=== PATIENT | male | born 1970 | race Caucasian/White ===

== ENCOUNTER 2021-05-12 23:03 | Inpatient (IN) | payer BC, SELFPAY ==
--- NOTE | ~2021-05-12 | US_ITS ---
EXAMINATION: US VENOUS ULTRASOUND WITH DOPPLER LOWER EXTREMITY, BILATERAL CLINICAL INFORMATION: Cellulitis rule out DVT/abscess. COMPARISON: None TECHNIQUE: Ultrasound of the deep veins is performed from the hip to the calf with compression sonography and color and pulse Doppler assessment. Spectral analysis with color-flow imaging is performed. FINDINGS: RIGHT: There is normal venous compression and respiratory variation and augmented flow. The visualized common femoral vein, superficial femoral vein, profunda femoral vein, popliteal vein, and the trifurcation region shows no evidence of deep venous thrombosis. No right popliteal cyst. An elongated, thin-walled proximal right thigh/inguinal lymph node measures 4.4 cm in long axis. Mild to moderate subcutaneous edema seen in the right calf. LEFT: There is normal venous compression and respiratory variation and augmented flow. The visualized common femoral vein, superficial femoral vein, profunda femoral vein, popliteal vein, and the trifurcation region shows no evidence of deep venous thrombosis. No left popliteal cyst. Mild subcutaneous edema in the left calf. US/US venous duplex LE BI IMPRESSION: 1. No evidence for deep venous thrombosis in the visualized veins of the bilateral lower extremities. 2. Mild to moderate subcutaneous edema in the calves bilaterally, right greater than left. No focal fluid collection. An elongated right proximal thigh/inguinal lymph node is enlarged, but demonstrates overall benign features. This could be baseline for the patient and/or could represent chronic reactive node.
[2021-05-12 23:25] VITALS: PULSE 122; O2SAT 99; BMI 43.7
[2021-05-12 23:43] VITALS: BP 117/54; PULSE 121; RESP 22; TEMP 36.9; O2SAT 96
[2021-05-13 00:28] LABS: MANUAL DIFF FLAG NO
[2021-05-13 00:30] LABS: Basophils Percent Auto 0.2 % (0-2); Hematocrit 40.7 % (42.0-52.0); Imm Gran Abs Auto 0.16 X10*3/uL (0.00-0.03); Imm Gran Pct Auto 0.9 % (0.0-0.4); Lymphocytes Absolute Auto 0.5 X10*3/uL (1.2-4.9); Lymphocytes Percent Auto 2.4 % (20-40); Mean Corpuscular HGB Conc 34.4 g/dl (31.0-36.0); Mean Corpuscular Hemoglobin 29.9 pg (27.0-33.0); Monocytes Absolute Auto 0.6 X10*3/uL (0.1-1.2); Monocytes Percent Auto 3.3 % (2-11); Neutrophils Absolute Auto 17.3 x10*3/uL (2.0-8.3); Neutrophils Percent Auto 93.2 % (45-73); Platelet Count 163 X10*3/uL (160-400); Red Blood Count 4.68 X10*6/uL (4.60-5.80); Red Cell Distribution Width 13.8 % (11.0-16.0); SCAN SMEAR FLAG 1; White Blood Count 18.5 X10*3/uL (4.8-10.8)
[2021-05-13 00:40] LABS: Lactic Acid 1.8 mmol/L (0.5-2.0)
[2021-05-13 00:45] LABS: Alanine Aminotransferase 28 U/L (0-40); Albumin Level 4.2 g/dL (3.5-5.0); Alkaline Phosphatase 62 U/L (39-117); Anion Gap 14 (12-20); Aspartate Amino Transferase 18 U/L (5-37); Bilirubin Total 2.5 mg/dL (0.0-1.0); Blood Urea Nitrogen 15 mg/dL (9-16); Calcium 9.3 mg/dL (8.4-10.2); Carbon Dioxide 25 mmol/L (22-29); Chloride 103 mmol/L (96-108); Estimated Glomerular Filt Rate > 60; Glucose Random 129 mg/dL (60-115); Potassium 3.9 mmol/L (3.3-5.1); Sodium 138 mmol/L (135-145); Total Protein 6.3 g/dL (6.5-8.0)
--- NOTE | 2021-05-13 00:52 | ED_ITS ---
HPI - Extremity Problem General Chief complaint: Extremity Injury, Lower Stated complaint: Rt Leg Swelling Time Seen by Provider: 05/12/21 23:48 Source: patient Mode of arrival: EMS History of Present Illness HPI Narrative: 50-year-old male with history of congenital lymphedema and history cellulitis as well as sepsis presents via ambulance with noticing that his leg was acutely painful and red today. Patient otherwise denies fever, chills and states he is having some nausea but also endorses that this can sometimes be related to the medication he takes. He has previously been seen at [facility] and records will be requested. Related Data Allergies Allergy/AdvReac Type Severity Reaction Status Date / Time No Known Allergies Allergy Verified 05/13/21 00:32 Review of Systems Review of Systems: Pertinent positives and negatives as stated in HPI 10 point review of systems is otherwise negative. [facility] Past Medical History Source: nursing notes reviewed Social History Social History Advance Directives: No Physical Exam Vital Signs: Vital Signs: Last Vital Signs Temp 98.4 F 05/12/21 23:43 Pulse 121 H 05/12/21 23:43 Resp 22 H 05/12/21 23:43 BP 117/54 L 05/12/21 23:43 Pulse Ox 96 05/12/21 23:43 BMI result Body Mass Index 43.7 VITAL SIGNS: Reviewed. GENERAL: Elevated BMI, Well developed, well nourished, in moderate distress. HEAD: Normocephalic/atraumatic EYES: PERRLA, EOMI EARS: Ext canals without abnormality OROPHARYNX: no oral lesions noted, posterior pharynx clear LUNGS: Normal breath sounds. No adventitious sounds or accessory muscle use. SpO2<96> CARDIOVASCULAR: Regular rate and rhythm without noted murmurs, no JVD or but bilateral lower lymphedema ABDOMEN: Soft, non-tender, non-distended with bowel sounds. MUSCULOSKELETAL: No tenderness, deformities, or effusions noted on gross inspection. EXTREMITIES: No cyanosis, clubbing or edema; erythematous right lower extremity, warmth to touch, no skin injury noted capillary refill less than 3 seconds palpable DP/PT. SKIN: Inspection of the skin reveals no rashes NEUROLOGIC: Alert and oriented x 4. Strength and sensation to light touch were g rossly intact x 4. Course Course Course Narrative: 50-year-old male with history and clinical presentation consistent with cellulitis and sepsis. Review of all investigations consistent with clinical and historical findings. Patient was treated with IV antibiotics/lactic acid/blood cultures and does not meet criteria for sepsis fluid bolus at this time. This case was discussed with the inpatient hospitalist who accepts admission. MDM - Extremity (Nontraumatic) Lab Data Result diagrams: 05/13/21 00:25 05/13/21 00:25 Labs: Lab Results 05/13/21 05/13/21 05/13/21 Range/Units 00:25 00:25 00:25 WBC 18.5 H (4.8-10.8) X10*3/uL RBC 4.68 (4.60-5.80) X10*6/uL Hgb 14.0 (14.0-18.0) g/dl Hct 40.7 L (42.0-52.0) % MCV 87.0 (80.0-98.0) fL MCH 29.9 (27.0-33.0) pg MCHC 34.4 (31.0-36.0) g/dl RDW 13.8 (11.0-16.0) % Plt Count 163 (160-400) X10*3/uL MPV 11.0 (9.4-12.4) fL Immature Gran % (Auto) 0.9 H (0.0-0.4) % Neut % (Auto) 93.2 H (45-73) % Lymph % (Auto) 2.4 L (20-40) % [place] % (Auto) 3.3 (2-11) % Eos % (Auto) 0.0 (0-4) % Baso % (Auto) 0.2 (0-2) % Lymph # (Auto) 0.5 L (1.2-4.9) X10*3/uL [place] # (Auto) 0.6 (0.1-1.2) X10*3/uL Eos # (Auto) 0.0 (0.0-0.4) X10*3/uL Baso # (Auto) 0.0 (0.0-0.2) X10*3/uL Abs Immat Gran (auto) 0.16 H (0.00-0.03) X10*3/uL Absolute Neuts (auto) 17.3 H (2.0-8.3) x10*3/uL Absolute Nucleated RBC 0.000 (0.0-0.012) X10*3/uL Nucleated RBC % (auto) 0.0 (0.0-0.2) /100WBC Sodium 138 (135-145) mmol/L Potassium 3.9 (3.3-5.1) mmol/L Chloride 103 (96-108) mmol/L Carbon Dioxide 25 (22-29) mmol/L Anion Gap 14 (12-20) BUN 15 (9-16) mg/dL Creatinine 1.16 (0.5-1.4) mg/dL Estim Creat Clear Calc 108.0 Estimated GFR > 60 Random Glucose 129 H (60-115) mg/dL Lactic Acid 1.8 (0.5-2.0) mmol/L Calcium 9.3 (8.4-10.2) mg/dL Total Bilirubin 2.5 H (0.0-1.0) mg/dL AST 18 (5-37) U/L ALT 28 (0-40) U/L Alkaline Phosphatase 62 (39-117) U/L Total Protein 6.3 L (6.5-8.0) g/dL Albumin 4.2 (3.5-5.0) g/dL COVID-19 (DRAGAN) (Negative) COVID-19 Clin Com 05/13/21 Range/Units 00:57 WBC (4.8-10.8) X10*3/uL RBC (4.60-5.80) X10*6/uL Hgb (14.0-18.0) g/dl Hct (42.0-52.0) % MCV (80.0-98.0) fL MCH (27.0-33.0) pg MCHC (31.0-36.0) g/dl RDW (11.0-16.0) % Plt Count (160-400) X10*3/uL MPV (9.4-12.4) fL Immature Gran % (Auto) (0.0-0.4) % Neut % (Auto) (45-73) % Lymph % (Auto) (20-40) % [place] % (Auto) (2-11) % Eos % (Auto) (0-4) % Baso % (Auto) (0-2) % Lymph # (Auto) (1.2-4.9) X10*3/uL [place] # (Auto) (0.1-1.2) X10*3/uL Eos # (Auto) (0.0-0.4) X10*3/uL Baso # (Auto) (0.0-0.2) X10*3/uL Abs Immat Gran (auto) (0.00-0.03) X10*3/uL Absolute Neuts (auto) (2.0-8.3) x10*3/uL Absolute Nucleated RBC (0.0-0.012) X10*3/uL Nucleated RBC % (auto) (0.0-0.2) /100WBC Sodium (135-145) mmol/L Potassium (3.3-5.1) mmol/L Chloride (96-108) mmol/L Carbon Dioxide (22-29) mmol/L Anion Gap (12-20) BUN (9-16) mg/dL Creatinine (0.5-1.4) mg/dL Estim Creat Clear Calc Estimated GFR Random Glucose (60-115) mg/dL Lactic Acid (0.5-2.0) mmol/L Calcium (8.4-10.2) mg/dL Total Bilirubin (0.0-1.0) mg/dL AST (5-37) U/L ALT (0-40) U/L Alkaline Phosphatase (39-117) U/L Total Protein (6.5-8.0) g/dL Albumin (3.5-5.0) g/dL COVID-19 (DRAGAN) Negative (Negative) COVID-19 Clin Com See Note Discharge Plan Discharge Clinical Impression: Sepsis, Cellulitis, Lymphedema Patient Disposition: Admitted As Inpatient
[2021-05-13 01:19] LABS: COVID-19 Test Negative (Negative); IDNOW Serial# 16C4AD1C
[2021-05-13] MEDS: Piperacillin Sodium/Tazobactam 3.375 GM in 0.9 % Sodium Chloride 50 ML IV (01:32)
[2021-05-13] MEDS: HYDROmorphone HCl 0.5 MG/0.5 ML SYRINGE 0.25 MG IVPUSH (01:51)
[2021-05-13] MEDS: Ketorolac Tromethamine 30 MG/ML VIAL 15 MG IVPUSH (01:52)
[2021-05-13] MEDS: vancomycin HCL 1,250 MG in 0.9 % Sodium Chloride 250 ML 166.67 MG IV (02:03)
--- NOTE | 2021-05-13 05:19 | P.HPHOSP_ITS ---
History of Present Illness Date of Service: 05/13/21 Chief Complaint: right leg pain redness and swelling 50-year-old male with a past medical history of lymphedema, cellulitis history presented to the hospital with a chief complaint of right leg pain redness and swelling started few hours prior to coming in. Patient mentioned that he had prior history of left leg cellulitis; this time had right leg cellulitis. Reports he had chronic lymphedema from the age of 11. Denies any nausea vomiting or diarrhea. Denies any discharge. Denies any trauma or injury. Reports he had prior history of cellulitis. Review of all other systems is negative except mentioned above ER course: Per ER team patient noted a right leg warm, tender and erythematous; consistent cellulitis. Given IV vancomycin and Zosyn. Admitted to the hospital for further management PMFSH Pertinent family history: Reviewed Social History Advance Directives: No Meds Allergies Allergy/AdvReac Type Severity Reaction Status Date / Time No Known Allergies Allergy Verified 05/13/21 00:32 Active Medications: Current Medications Acetaminophen (Acetaminophen 325 Mg Tablet) 650 mg PO Q6H PRN PRN Reason: Pain, Mild (Pain Scale 1-3) Docusate Sodium (Docusate Sodium 100 Mg Capsule) 100 mg PO DAILY PRN PRN Reason: Constipation Enoxaparin Sodium (Enoxaparin Sodium 40 Mg/0.4 Ml Syringe) 40 mg SUBCUT Q24H MIGDALIA Hydromorphone HCl (Hydromorphone Hcl 1 Mg/Ml Syringe) 0.5 mg IVPUSH Q4H PRN; Protocol PRN Reason: Pain, Severe (Pain Scale 7-10) Sodium Chloride (Ns) 1,000 mls @ 100 mls/hr IVCONT .Q10H MIGDALIA Vancomycin HCl 1,000 mg/ (Sodium Chloride) 270 mls @ 270 mls/hr IV Q12H MIG[facility]ALIA Melatonin (Melatonin 3 Mg Tablet) 6 mg PO BEDTIME PRN PRN Reason: Insomnia Pharmacy Consult (Consult Rx Vancomycin Dosing) 1 each MISCELLANE DAILY PRN PRN Reason: Consult order Pharmacy Consult (Consult Rx Vancomycin Dosing) 1 each MISCELLANE DAILY PRN PRN Reason: Consult order Senna (Sennosides 8.6 Mg Tablet) 17.2 mg PO BEDTIME PRN PRN Reason: Constipation Sodium Chloride (0.9 % Sodium Chloride Flush 3 Ml Syringe) 3 ml IVFLUSH QSHIFT [facility] Home Medications Medication Instructions Recorded Confirmed Last Taken Type allopurinol 300 mg tablet 300 mg PO DAILY 05/13/21 05/13/21 Unknown History ergocalciferol (vitamin D2) 1,250 1 cap PO QWEEK 05/13/21 05/13/21 Unknown History mcg (50,000 unit) capsule gabapentin 800 mg tablet 1 - 2 tab PO BEDTIME PRN 05/13/21 05/13/21 Unknown History meloxicam 15 mg tablet 1 tab PO DAILY 05/13/21 05/13/21 Unknown History ondansetron HCl 8 mg tablet 1 tab PO BID PRN 05/13/21 05/13/21 Unknown History semaglutide (weight loss) 1.7 1.7 mg SUBCUT QWEEK 05/13/21 05/13/21 Unknown History mg/0.75 mL subcutaneous pen injector (Nisha) Physical Exam Vital Signs and Narrative: Vital Signs: Last Vital Signs Temp 98.4 F 05/12/21 23:43 Pulse 121 H 05/12/21 23:43 Resp 22 H 05/12/21 23:43 BP 117/54 L 05/12/21 23:43 Pulse Ox 96 05/12/21 23:43 BMI result Body Mass Index 43.7 Gen: Appears be in no acute distress HEENT: NCAT, Moist mucosa. Pulmonary: Vesicular breath sounds, fair air entry CVS: Normal S1-S2 Abdomen: BS+, Soft, Nontender Extremities: Warm well perfused; right leg is warm tender, Erythematous; no discharge. Neuro: Alert and awake. Results Labs CBC and Chem 7: 05/13/21 00:25 05/13/21 00:25 Labs: Laboratory Results - last 24 hr 05/13/21 05/13/21 05/13/21 00:25 00:25 00:25 MCV 87.0 MCH 29.9 MCHC 34.4 RDW 13.8 Plt Count 163 MPV 11.0 Immature Gran % (Auto) 0.9 H Neut % (Auto) 93.2 H Lymph % (Auto) 2.4 L [place] % (Auto) 3.3 Eos % (Auto) 0.0 Baso % (Auto) 0.2 Lymph # (Auto) 0.5 L [place] # (Auto) 0.6 Eos # (Auto) 0.0 Baso # (Auto) 0.0 Abs Immat Gran (auto) 0.16 H Absolute Neuts (auto) 17.3 H Absolute Nucleated RBC 0.000 Nucleated RBC % (auto) 0.0 Anion Gap 14 Estim Creat Clear Calc 108.0 Estimated GFR > 60 Random Glucose 129 H Lactic Acid 1.8 Calcium 9.3 Total Bilirubin 2.5 H AST 18 ALT 28 Alkaline Phosphatase 62 Total Protein 6.3 L Albumin 4.2 COVID-19 (DRAGAN) COVID-19 Clin Com 05/13/21 00:57 MCV MCH MCHC RDW Plt Count MPV Immature Gran % (Auto) Neut % (Auto) Lymph % (Auto) [place] % (Auto) Eos % (Auto) Baso % (Auto) Lymph # (Auto) [place] # (Auto) Eos # (Auto) Baso # (Auto) Abs Immat Gran (auto) Absolute Neuts (auto) Absolute Nucleated RBC Nucleated RBC % (auto) Anion Gap Estim Creat Clear Calc Estimated GFR Random Glucose Lactic Acid Calcium Total Bilirubin AST ALT Alkaline Phosphatase Total Protein Albumin COVID-19 (DRAGAN) Negative COVID-19 Clin Com See Note Assessment and Plan (1) Cellulitis: Status: Acute Plan 50-year-old male with a past medical history of lymphedema, cellulitis history presented to the hospital with a chief complaint of right leg pain redness and swelling. noted to have cellulitis. Admitted for further management. Right leg cellulitis: Continue IV vancomycin. Pain control IV fluids Will also obtain venous duplex DVT prophylaxis: Lovenox Code status: Full code Quality Stroke Does the patient have a stroke diagnosis?: No VTE Prior VTE?: No VTE Risk Level:: Medical - moderate - high VTE Device Contraindication: Treatment Not Indicated VTE Drug Contraindication: N/A - Med Ordered
[2021-05-13] MEDS: 0.9 % Sodium Chloride 1,000 ML 100 ML IVCONT (05:52)
[2021-05-13] MEDS: HYDROmorphone HCl 1 MG/ML SYRINGE 0.5 MG IVPUSH ×2 (05:53→10:05)
--- NOTE | 2021-05-13 07:04 | PC.NURSE ---
I assumed care of this pt upon his arrival to bed 10 via EMS from home. Milton states he came tot he ED for evaluation of RLE swelling, redness, warmth and pain. He states he has a history significant for congenital lymphadema and I get septic really fast. He states he began to feel nauseated on the afternoon of 05/12 and that's when I know that I'm getting sick. He admits to fever and chills and severe RLE pain. No chest pain. No shortness of breath. He is alert and oriented x 3, calm and cooperative, makes eye contact with RN. IV access and labs were obtained.
--- NOTE | 2021-05-13 07:16 | PHA.PROG ---
Admission Date/Time: May 13, 2021 05:17 Indication: Right Leg Cellulitis Weight in k.346 kg Adjusted body weight in K.138 kg [place] body weight in K kg Obesity Dosing Indication % IBW: 189 % Serum Creatinine - Last 168 Hours 05/13/21 00:25 Creatinine 1.16 Estimated CrCl and GFR - Last 168 Hours 05/13/21 00:25 Estim Creat Clear Calc 108.0 Estimated GFR > 60 Vancomycin Loading Dose:1250 mg Current Vancomycin Dosing Regimen: 1000 mg Q12H Date and Time for next Vancomycin Level to be drawn: 05/14 @ 0800 Pharmacist Comments on Vancomycin Plan: Patient is morbidity obese. vancomycin can be unpredictable in obese patients. Patient did not receive and adequate loading dose for his weight. Will start mainteance dose in 8 hours instead of 12 hours First dose 1250 mg given in the ED 05/13 @ 0203 Will start maintenance dose 1000 mg Q12H on 05/13 @ 1000. Expected AUC 495 with a trough of 14.2 Trough to be drawn prior to 4th dose. Pharmacy will monitor renal function daily. Vidya Bello PharmD Vancomycin dosing will take advantage of [employer] as a clinical decision support tool that uses Bayesian modeling to calculate individual patient's pharmacokinetic parameters and forecast the patient's drug concentration time course with the target goal AUC 24 range of 400 - 600 mg/L/hr.
--- NOTE | 2021-05-13 07:42 | PC.NURSE ---
Right lower leg is red, warm to touch. Pt reports achy, burning pain in right lower leg 7/10 at present.
--- NOTE | 2021-05-13 08:18 | PHA.MEDREC ---
Pharmacy Consult ? Medication Reconciliation Pharmacy has completed the medication reconciliation.
[2021-05-13] MEDS: allopurinoL 300 MG TABLET PO (08:38)
[2021-05-13] MEDS: vancomycin HCL 1,000 MG in 0.9 % Sodium Chloride 250 ML 270 MG IV ×2 (09:04→21:26)
--- NOTE | 2021-05-13 13:26 | P.EN_ITS ---
Event Note Date of Service: 05/13/21 Event Note: 50-year-old gentleman with past medical history of obesity, lymphedema and recurrent cellulitis presented to [facility] with acute onset of right lower extremity swelling redness and pain of few hours duration In the emergency room patient noted to be tachypneic tachycardic with elevated leukocytosis and significant involvement of entire right lower extremity therefore admitted with a diagnosis of sepsis due to extensive right lower extremity cellulitis At present patient complaining of persistent right lower extremity pain denies fever chills no nausea. Sepsis due to right lower extremity cellulitis involving 50% of right lower extremity. Patient met sepsis criteria due to tachycardia, tachypnea and leukocytosis.Sepsis present on admission Continue IV vancomycin, follow CBC and blood culture, follow Vanco trough Venous Doppler study lower extremity showed no DVT Will DC IV fluid, keep leg elevated On IV Dilaudid for pain control Morbid obesity Recommend weight reduction likely contributing to lymphedema and recurrent cellulitis Gout continue allopurinol no acute flare Chronic lymphedema recommend compression boots, weight reduction and outpatient follow-up with lymphedema clinic DVT prophylaxis: Lovenox Code status:? Full code
--- NOTE | 2021-05-13 13:59 | MHC.CM.PN ---
Met with patient in regards to discharge planning. Patient lives with his and step son, ambulates independently and had no services prior to coming to the hospital. No services anticipated to be needed because patient is not homebound. PCP verified as Dr Kaur. Copy of HCP obtained from [facility]. Patient received 3 Pfizer vaccines. Patient's will transport patient home when medically stable. Continue to monitor for d/c needs.
[2021-05-13] MEDS: HYDROmorphone HCl 1 MG/ML SYRINGE IVPUSH ×3 (14:06→22:38)
[2021-05-13 14:35] VITALS: BP 132/67; PULSE 96; RESP 12; TEMP 37.7; O2SAT 95
[2021-05-13] MEDS: ondansetron HCL 4 MG/2 ML VIAL IVPUSH (14:54)
[2021-05-13 15:13] VITALS: BP 133/66; PULSE 91; RESP 18; TEMP 36.4; O2SAT 94
[2021-05-13] MEDS: 0.9 % Sodium Chloride Flush 3 ML SYRINGE IVFLUSH (21:31)
[2021-05-13] MEDS: Melatonin 3 MG TABLET 6 MG PO (22:38)
[2021-05-13] MEDS: Gabapentin 400 MG CAPSULE 800 MG PO (22:38)
[2021-05-13] MEDS: Acetaminophen 325 MG TABLET 650 MG PO (22:38)
[2021-05-13 23:40] VITALS: BP 127/56; PULSE 97; RESP 18; TEMP 37.3; O2SAT 95
[2021-05-14] MEDS: 0.9 % Sodium Chloride 1,000 ML 50 ML IVCONT ×2 (00:20→20:30)
[2021-05-14] MEDS: HYDROmorphone HCl 1 MG/ML SYRINGE IVPUSH ×2 (02:54→07:55)
[2021-05-14] MEDS: Enoxaparin Sodium 40 MG/0.4 ML SYRINGE SUBCUT (05:48)
[2021-05-14 07:13] VITALS: BP 109/55; PULSE 93; RESP 18; TEMP 37.2; O2SAT 94
[2021-05-14 07:55] VITALS: RESP 16
[2021-05-14] MEDS: Docusate Sodium 100 MG CAPSULE PO (07:55)
[2021-05-14] MEDS: allopurinoL 300 MG TABLET PO (07:55)
[2021-05-14 08:29] LABS: MANUAL DIFF FLAG NO
[2021-05-14 08:39] LABS: Basophils Percent Auto 0.3 % (0-2); Eosinophils Absolute Auto 0.1 X10*3/uL (0.0-0.4); Eosinophils Percent Auto 0.8 % (0-4); Hematocrit 36.7 % (42.0-52.0); Hemoglobin 12.1 g/dl (14.0-18.0); Imm Gran Abs Auto 0.04 X10*3/uL (0.00-0.03); Imm Gran Pct Auto 0.4 % (0.0-0.4); Lymphocytes Absolute Auto 0.8 X10*3/uL (1.2-4.9); Lymphocytes Percent Auto 8.2 % (20-40); Mean Corpuscular Hemoglobin 28.9 pg (27.0-33.0); Mean Corpuscular Volume 87.8 fL (80.0-98.0); Mean Platelet Volume 11.6 fL (9.4-12.4); Monocytes Absolute Auto 0.6 X10*3/uL (0.1-1.2); Monocytes Percent Auto 6.1 % (2-11); Neutrophils Absolute Auto 8.3 x10*3/uL (2.0-8.3); Neutrophils Percent Auto 84.2 % (45-73); Red Blood Count 4.18 X10*6/uL (4.60-5.80); White Blood Count 9.8 X10*3/uL (4.8-10.8)
[2021-05-14 08:51] LABS: Platelet Count 122 X10*3/uL (160-400)
[2021-05-14 08:54] LABS: Vancomycin Trough 5.3 mcg/mL (10.0-20.0)
[2021-05-14 09:00] LABS: Anion Gap 9 (12-20); Blood Urea Nitrogen 11 mg/dL (9-16); Calcium 8.3 mg/dL (8.4-10.2); Carbon Dioxide 27 mmol/L (22-29); Chloride 106 mmol/L (96-108); Creatinine Clr Calc Pharmacy 160.6; Estimated Glomerular Filt Rate > 60; Glucose Random 98 mg/dL (60-115); Potassium 4.1 mmol/L (3.3-5.1); Sodium 138 mmol/L (135-145)
--- NOTE | 2021-05-14 09:10 | P.PNIM_ITS ---
Subjective Subjective Date of Service: 05/14/21 Interval History: feeling dehydrated nauseous unable to take by mouth, feeling better with IV fluids less left leg pain and swelling, no fever chills overnight, no other acute issues. Review of Systems Review of Systems: Yes all other systems are reviewed and are negative Physical Exam Vital Signs: Vital Signs: Last Vital Signs Temp 99 F 05/14/21 07:13 Pulse 93 05/14/21 07:13 Resp 16 05/14/21 07:55 BP 109/55 L 05/14/21 07:13 Pulse Ox 94 05/14/21 07:13 BMI result Body Mass Index 43.7 Const: Other: General no acute distress. Neck supple no JVD. CVS regular rate rhythm, Respiratory lungs clear to auscultation, no respiratory distress, no wheeze, no rhonchi. Gastrointestinal abdomen soft, nontender, bowel sounds audible, no no guarding , no rigidity. Extremities right lower extremity persistent hyperemia and swelling improved since yesterday extending from dorsum right foot to just below knee/left leg no pitting edema or redness Neuro nonfocal Psych appropriate affect Objective Data Active Medications Acetaminophen (Acetaminophen 325 Mg Tablet) 650 mg PO Q6H PRN PRN Reason: Pain, Mild (Pain Scale 1-3) Last Admin: 05/13/21 22:38 Dose: 650 mg Documented by: MELISSA Allopurinol (Allopurinol 300 Mg Tablet) 300 mg PO DAILY [facility] Last Admin: 05/14/21 07:55 Dose: 300 mg Documented by: ANNA Docusate Sodium (Docusate Sodium 100 Mg Capsule) 100 mg PO DAILY PRN PRN Reason: Constipation Last Admin: 05/14/21 07:55 Dose: 100 mg Documented by: ANNA Enoxaparin Sodium (Enoxaparin Sodium 40 Mg/0.4 Ml Syringe) 40 mg SUBCUT Q24H [facility] Last Admin: 05/14/21 05:48 Dose: 40 mg Documented by: MELISSA Ergocalciferol (Ergocalciferol (Vitamin D2) 1,250 Mcg Capsule) 50,000 mcg PO Q7D [facility] Last Admin: 05/13/21 06:33 Dose: Not Given Documented by: KEVIN Non-Admin Reason: See Note Gabapentin (Gabapentin 400 Mg Capsule) 800 mg PO BEDTIME PRN PRN Reason: Sleep Last Admin: 05/13/21 22:38 Dose: 800 mg Documented by: MELISSA Vancomycin HCl 1,000 mg/ (Sodium Chloride) 270 mls @ 270 mls/hr IV Q12H [facility] Last Infusion: 05/13/21 22:40 Dose: 0 mls/hr Documented by: MELISSA Sodium Chloride (Ns) 1,000 mls @ 50 mls/hr IVCONT .Q20H [facility] Last Admin: 05/14/21 00:20 Dose: 50 mls/hr Documented by: MELISSA Melatonin (Melatonin 3 Mg Tablet) 6 mg PO BEDTIME PRN PRN Reason: Insomnia Last Admin: 05/13/21 22:38 Dose: 6 mg Documented by: MELISSA Ondansetron HCl (Ondansetron Hcl 4 Mg/2 Ml Vial) 4 mg IVPUSH Q8H PRN PRN Reason: Nausea and Vomiting Last Admin: 05/13/21 14:54 Dose: 4 mg Documented by: LADY Pharmacy Consult (Consult Rx Vancomycin Dosing) 1 each MISCELLANE DAILY PRN PRN Reason: Consult order Senna (Sennosides 8.6 Mg Tablet) 17.2 mg PO BEDTIME PRN PRN Reason: Constipation Sodium Chloride (0.9 % Sodium Chloride Flush 3 Ml Syringe) 3 ml IVFLUSH QSHIFT [facility] Last Admin: 05/14/21 08:06 Dose: Not Given Documented by: ANNA Non-Admin Reason: IV Running Labs CBC & Chem 7: 05/14/21 07:55 05/14/21 07:55 Labs: Laboratory Results - last 24 hr 05/14/21 05/14/21 05/14/21 07:55 07:55 07:55 MCV 87.8 MCH 28.9 MCHC 33.0 RDW 14.0 Plt Count 122 L D MPV 11.6 Immature Gran % (Auto) 0.4 Neut % (Auto) 84.2 H Lymph % (Auto) 8.2 L [place] % (Auto) 6.1 Eos % (Auto) 0.8 Baso % (Auto) 0.3 Lymph # (Auto) 0.8 L [place] # (Auto) 0.6 Eos # (Auto) 0.1 Baso # (Auto) 0.0 Abs Immat Gran (auto) 0.04 H Absolute Neuts (auto) 8.3 Absolute Nucleated RBC 0.000 Nucleated RBC % (auto) 0.0 Anion Gap 9 L Estim Creat Clear Calc 160.6 Cancelled Estimated GFR > 60 Cancelled Random Glucose 98 Calcium 8.3 L D Vancomycin Trough 05/14/21 07:55 MCV MCH MCHC RDW Plt Count MPV Immature Gran % (Auto) Neut % (Auto) Lymph % (Auto) [place] % (Auto) Eos % (Auto) Baso % (Auto) Lymph # (Auto) [place] # (Auto) Eos # (Auto) Baso # (Auto) Abs Immat Gran (auto) Absolute Neuts (auto) Absolute Nucleated RBC Nucleated RBC % (auto) Anion Gap Estim Creat Clear Calc Estimated GFR Random Glucose Calcium Vancomycin Trough 5.3 L Microbiology Microbiology Results: Microbiology 05/13/21 00:25 Blood Culture - Preliminary Blood - Venous No growth after 24 hours. 05/13/21 00:25 Blood Culture - Preliminary Blood - Venous No growth after 24 hours. Blood Culture - Preliminary No growth after 24 hours. Assessment and Plan (1) Sepsis: Status: Acute (2) Cellulitis: Status: Acute (3) Lymphedema: Status: Acute (4) Morbid obesity: Status: Acute Plan 50-year-old gentleman with past medical history of obesity, lymphedema and recurrent cellulitis presented to [facility] with acute onset of right lower extremity swelling redness and pain of few hours duration In the emergency room patient noted to be tachypneic tachycardic with elevated leukocytosis and significant involvement of entire right lower extremity therefore admitted with a diagnosis of sepsis due to extensive right lower extremity cellulitis Sepsis due to right lower extremity cellulitis involving 50% of right lower extremity. met sepsis criteria on admission due to tachycardia, tachypnea and leukocytosis All features of sepsis resolved today Continue IV vancomycin day 2, WBC normalized blood cultures x2 negative times 24 hours,follow Vanco trough Venous Doppler study lower extremity showed no DVT keep leg elevated On IV Dilaudid for pain control, wean Dilaudid and add as needed oxycodone. Mild drop in platelets will follow CBC. Nausea Likely due to antibiotics and infection will treat with IV fluids and antiemetics Morbid obesity Recommend weight reduction likely contributing to lymphedema and recurrent cellulitis Gout continue allopurinol no acute flare Chronic lymphedema recommend compression boots, weight reduction and outpatient follow-up with lymphedema clinic DVT prophylaxis: Lovenox Code status:? Full code Patient needs hospitalization due to sepsis with persistent nausea decreased by mouth intake requiring IV antibiotic and waiting for final blood culture report. Quality Stroke Does the patient have a stroke diagnosis?: No VTE Prior VTE?: No VTE Risk Level:: Medical - moderate - high VTE Device Contraindication: Treatment Not Indicated VTE Drug Contraindication: N/A - Med Ordered
--- NOTE | 2021-05-14 09:28 | PHA.PROG ---
Admission Date/Time: May 13, 2021 05:17 Indication: Right Leg Cellulitis Weight in k.346 kg Adjusted body weight in K.138 kg [place] body weight in K kg Obesity Dosing Indication % IBW: 189 % Serum Creatinine - Last 168 Hours 05/13/21 05/14/21 05/14/21 00:25 07:55 07:55 Creatinine 1.16 0.78 Cancelled Estimated CrCl and GFR - Last 168 Hours 05/13/21 05/14/21 05/14/21 00:25 07:55 07:55 Estim Creat Clear Calc 108.0 160.6 Cancelled Estimated GFR > 60 > 60 Cancelled Vancomycin Loading Dose: 2000 mg Current Vancomycin Dosing Regimen: 1000 mg Q12H Vancomycin Trough 5.3 mcg/mL (10.0-20.0) L 05/14/21 07:55 Pharmacist Comments on Vancomycin Plan: Current regimen subtheraputic with an AUC of 294. SCr has decreased improving renal function and clearnce Will increase dose to 1500 mg Q12H. Expeceted AUC 441 with a trough of 5.7. Trough drawn today was 5.3 therefore I am expected the increase of dose to also increase the trough higher than expected Trough on 05/15 @ 0800 If trough does not change, patient may require Q8H dosing Pharmacy will continue to monitor renal function Vidya Bello PharmD Vancomycin dosing will take advantage of [employer] as a clinical decision support tool that uses Bayesian modeling to calculate individual patient's pharmacokinetic parameters and forecast the patient's drug concentration time course with the target goal AUC 24 range of 400 - 600 mg/L/hr.
[2021-05-14] MEDS: vancomycin HCL 1,500 MG in 0.9 % Sodium Chloride 500 ML 333.33 MG IV ×2 (11:14→22:14)
[2021-05-14] MEDS: oxyCODONE HCl Immed Release 5 MG TABLET 7.5 MG PO ×3 (11:21→23:56)
--- NOTE | 2021-05-14 14:00 | MHC.CM.PN ---
PATIENT REMAINS ON IV ABX AND CULTURES PENDING. CASE MANAGEMENT FOLLOWING FOR DC PLANS
[2021-05-14 15:27] VITALS: BP 121/68; PULSE 88; RESP 17; TEMP 37.2; O2SAT 97
[2021-05-14] MEDS: ondansetron HCL 4 MG/2 ML VIAL IVPUSH (17:44)
[2021-05-14] MEDS: Acetaminophen 325 MG TABLET 650 MG PO (20:37)
[2021-05-14 23:52] VITALS: BP 121/66; PULSE 68; RESP 18; TEMP 36.5; O2SAT 96
[2021-05-14] MEDS: Gabapentin 400 MG CAPSULE 800 MG PO (23:55)
[2021-05-14] MEDS: Melatonin 3 MG TABLET 6 MG PO (23:55)
[2021-05-15] MEDS: Acetaminophen 325 MG TABLET 650 MG PO ×2 (03:28→10:03)
[2021-05-15] MEDS: oxyCODONE HCl Immed Release 5 MG TABLET 7.5 MG PO (05:53)
[2021-05-15] MEDS: Enoxaparin Sodium 40 MG/0.4 ML SYRINGE SUBCUT (05:54)
[2021-05-15 07:35] VITALS: BP 109/55; PULSE 80; RESP 18; TEMP 36.8; O2SAT 98
[2021-05-15 08:23] LABS: Hematocrit 36.7 % (42.0-52.0); Hemoglobin 12.3 g/dl (14.0-18.0); Mean Corpuscular HGB Conc 33.5 g/dl (31.0-36.0); Mean Corpuscular Hemoglobin 29.4 pg (27.0-33.0); Mean Corpuscular Volume 87.6 fL (80.0-98.0); Mean Platelet Volume 11.4 fL (9.4-12.4); Platelet Count 143 X10*3/uL (160-400); Red Blood Count 4.19 X10*6/uL (4.60-5.80); Red Cell Distribution Width 13.8 % (11.0-16.0); White Blood Count 6.1 X10*3/uL (4.8-10.8)
[2021-05-15 08:31] LABS: Creatinine Clr Calc Pharmacy 162.7; Estimated Glomerular Filt Rate > 60
[2021-05-15 09:13] LABS: Vancomycin Trough 10.8 mcg/mL (10.0-20.0)
--- NOTE | 2021-05-15 09:30 | PM.DS ---
DS: Providers Provider Date of Service: 05/15/21 Date of admission: 05/13/21 05:17 Primary care physician: Unknown Physician DS: Diagnosis Discharge Diagnosis (1) Sepsis: Status: Acute (2) Cellulitis: Status: Acute (3) Lymphedema: Status: Acute (4) Morbid obesity: Status: Acute DS: Summary Hospital Course Hospital Course: Chief Complaint:? right leg pain redness and swelling ?50-year-old male with a past medical history of lymphedema, cellulitis history presented to the hospital with a chief complaint of right leg pain redness and swelling started few hours prior to coming in.? ? Patient mentioned that he had prior history of left leg cellulitis; this time had right leg cellulitis.? Reports he had chronic lymphedema from the age of 11. Denies any nausea vomiting or diarrhea.? Denies any discharge.? Denies any trauma or injury.? Reports he had prior history of cellulitis.? Review of all other systems is negative except mentioned above ER course: Per ER team patient noted a right leg warm, tender and erythematous; consistent cellulitis.? Given IV vancomycin and Zosyn. ? Admitted to the hospital for further management. Hospital course 50-year-old gentleman with past medical history of obesity, lymphedema and recurrent cellulitis presented to [facility] with acute onset of right lower extremity swelling redness and pain of few hours duration In the emergency room patient noted to be tachypneic tachycardic with elevated leukocytosis and significant involvement of entire right lower extremity( 50% of right leg) therefore admitted with a diagnosis of sepsis due to extensive right lower extremity cellulitis with backdrop of lymphedema and morbid obesity, patient treated with IV vancomycin, pain medications, IV fluids and antiemetics for nausea, WBC normalized, blood cultures x2 showed no growth in 48 hours , since patient responded well to IV antibiotics with significant improvement in right leg swelling and redness therefore being discharged home on by mouth doxycycline for total 10 day course of antibiotic patient has been recommended to keep leg elevated follow low-calorie diet,and follow-up at lymphedema clinic, he has been recommended to continue home medications including allopurinol and gabapentin with history of gout. Time Spent with Patient Time attestation: Total time spent providing and/or coordinating discharge services: Discharge coordination time: Greater than 30 minutes Quality: Stroke Does the patient have a stroke diagnosis?: No Physical Exam Vital Signs: Vital Signs: Last Vital Signs Temp 98.3 F 05/15/21 07:35 Pulse 80 05/15/21 07:35 Resp 18 05/15/21 07:35 BP 109/55 L 05/15/21 07:35 Pulse Ox 98 05/15/21 07:35 BMI result Body Mass Index 43.7 Const: Other: General no acute distress.? Neck supple no JVD. CVS? regular rate rhythm, Respiratory lungs clear to auscultation, no respiratory distress, no wheeze, no rhonchi. Gastrointestinal abdomen soft, nontender, bowel sounds audible, no no guarding , no rigidity. Extremities right lower extremity hyperemia resolved and swelling improved close to baseline, no open sores/left leg no pitting edema or redness Neuro nonfocal Psych appropriate affect DS: Data Data Completed and Pending Labs on day of discharge: Laboratory Results - last 24 hr 05/15/21 05/15/21 05/15/21 08:07 08:07 08:07 WBC 6.1 RBC 4.19 L Hgb 12.3 L Hct 36.7 L MCV 87.6 MCH 29.4 MCHC 33.5 RDW 13.8 Plt Count 143 L MPV 11.4 Absolute Nucleated RBC 0.000 Nucleated RBC % (auto) 0.0 Creatinine 0.77 Estim Creat Clear Calc 162.7 Estimated GFR > 60 Vancomycin Trough 10.8 Preliminary micro results at discharge 05/13/21 00:25 Blood Culture - Preliminary Blood - Venous No growth after 48 hours. 05/13/21 00:25 Blood Culture - Preliminary Blood - Venous No growth after 48 hours. Blood Culture - Preliminary No growth after 48 hours. Discharge Plan Discharge Patient Disposition: Home, Self-Care Discharge Diagnosis: Sepsis due to right lower extremity cellulitis Referrals: Physician,Unknown J [Primary Care Provider] - 1 Week Discharge Medications: New doxycycline hyclate 100 mg capsule 100 mg PO BID Qty: 16 0RF Continued ondansetron HCl 8 mg tablet 1 tab PO BID PRN (Reason: nausea) 0RF meloxicam 15 mg tablet 15 mg PO DAILY 0RF gabapentin 800 mg tablet 1,600 mg PO BEDTIME PRN (Reason: Sleep) 0RF allopurinol 300 mg tablet 300 mg PO Q2D@2100 0RF ergocalciferol (vitamin D2) 1,250 mcg (50,000 unit) capsule 1 cap PO QUINTANILLA@1000 0RF Wegovy 1.7 mg/0.75 mL pen injector 1.7 mg subcut WE@1000 0RF allopurinol 300 mg tablet 450 mg PO Q2D@2100 0RF Discharge Orders: Discharge Order (Routine); Ordered 05/15/21 Ordered By: Lars Mayen Diet: advance to usual diet Activity on Discharge: As tolerated Stand Alone Forms: Patient Portal Discharge page Care Plan Goals: Keep right lower extremity elevated continue by mouth antibiotic doxycycline for 8 more days, return to check with recurrent symptoms. Health Concerns: Take all home medications as before Plan of Treatment: Follow-up with primary care physician in 7-10 days Assessment: As per discharge summary
--- NOTE | 2021-05-15 09:35 | MHC.CM.PN ---
PT MEDICALLY CLEARED FOR D/C HOME SELF-CARE, PT'S WILL TRANSPORT WHEN SHE GETS OUT OF WORK.
--- NOTE | 2021-05-15 09:37 | PHA.PROG ---
Admission Date/Time: May 13, 2021 05:17 Indication: Cellulitis Weight in k.346 kg Adjusted body weight in Kg: [place] body weight in Kg: Obesity Dosing Indication % IBW: Serum Creatinine - Last 168 Hours 05/13/21 05/14/21 05/14/21 00:25 07:55 07:55 Creatinine 1.16 0.78 Cancelled 05/15/21 08:07 Creatinine 0.77 Estimated CrCl and GFR - Last 168 Hours 05/13/21 05/14/21 05/14/21 00:25 07:55 07:55 Estim Creat Clear Calc 108.0 160.6 Cancelled Estimated GFR > 60 > 60 Cancelled 05/15/21 08:07 Estim Creat Clear Calc 162.7 Estimated GFR > 60 Vancomycin Loading Dose: 1250 x1 Current Vancomycin Dosing Regimen: 1500 mg Q12H Vancomycin Monitoring using AUC goal of 400 - 600 range with trough as surrogate marker: Predicting a AUC of 532 and a trough of 6.5. Will continue to monitor renal function. Date and Time for next Vancomycin Level to be drawn: 05/16 @ 1999 Vancomycin Trough 10.8 mcg/mL (10.0-20.0) 05/15/21 08:07 Pharmacist Comments on Vancomycin Plan: Vancomycin dosing will take advantage of [employer] as a clinical decision support tool that uses Bayesian modeling to calculate individual patient's pharmacokinetic parameters and forecast the patient's drug concentration time course with the target goal AUC 24 range of 400 - 600 mg/L/hr.
[2021-05-15] MEDS: allopurinoL 300 MG TABLET PO (10:03)
[2021-05-15] MEDS: vancomycin HCL 1,500 MG in 0.9 % Sodium Chloride 500 ML 333.3 MG IV (10:04)
[2021-05-15] MEDS: 0.9 % Sodium Chloride Flush 3 ML SYRINGE IVFLUSH (10:04)
[2021-05-15 10:49] VITALS: BP 116/70; PULSE 74; RESP 18; TEMP 36.1; O2SAT 97
== END 2021-05-15 15:00 | disposition home or self-care (01) | DRG 720 ==
LOC: HO.ED 05-13 01:35 → HO.EDOVER 05-13 05:20 → HO.S3 05-13 14:02
PROVIDERS: Admitting Provider Hospitalist; Emergency Provider Student in an Organized Health Care Education/Training Program; PCP Family Medicine; Visit Provider Hospitalist
DX: A41.9 Sepsis, unspecified organism (principal); Z68.41 Body mass index [BMI] 40.0-44.9, adult; L03.115 Cellulitis of right lower limb; E66.01 Morbid (severe) obesity due to excess calories; Q82.0 Hereditary lymphedema; Z20.822 Contact with and (suspected) exposure to COVID-19; Z79.899 Other long term (current) drug therapy
CPT/HCPCS: 36415; 80048; 80053; 80202; 82565; 83605; 85025; 85027; 87040; 87635; 93970; 99285; J1170; J1650; J1885; J2405; J2543; J3370

== ENCOUNTER 2021-05-27 21:59 | Inpatient (IN) | payer BC, SELFPAY ==
--- NOTE | ~2021-05-27 | US_ITS ---
EXAMINATION: US VENOUS ULTRASOUND WITH DOPPLER LOWER EXTREMITY, LEFT CLINICAL INFORMATION: Left leg pain and swelling COMPARISON: May 13, 2021 TECHNIQUE: Ultrasound of the deep veins is performed from the hip to the calf with compression sonography and color and pulse Doppler assessment. Spectral analysis with color-flow imaging is performed. FINDINGS: There is normal venous compression and respiratory variation and augmented flow. The visualized common femoral vein, superficial femoral vein, profunda femoral vein, popliteal vein, and the trifurcation region shows no evidence of deep venous thrombosis. There is no significant popliteal fossa cyst. No popliteal artery aneurysm. US/US venous duplex LE LT IMPRESSION: No acute DVT demonstrated in the left lower extremity.
--- NOTE | 2021-05-27 22:08 | ED_ITS ---
HPI - Extremity Problem General Chief complaint: General Medical Stated complaint: bilateral leg swelling, vomitting Time Seen by Provider: 05/27/21 22:07 Source: patient Mode of arrival: EMS Limitations: no limitations History of Present Illness HPI Narrative: Patient with history of lymphedema with recurrent cellulitis obesity was admitted here on 05/13 for right leg cellulitis comes here for last 6 hour notice redness of the left leg spread all the way to the knee with nausea and vomiting patient does get this rapidly spreading cellulitis very often with sepsis Related Data Home Medications Medication Instructions Recorded Confirmed allopurinol 300 mg tablet 300 mg PO Q2D@2100 05/13/21 05/13/21 allopurinol 300 mg tablet 450 mg PO Q2D@2100 05/13/21 05/13/21 ergocalciferol (vitamin D2) 1,250 1 cap PO QUINTANILLA@1000 05/13/21 05/13/21 mcg (50,000 unit) capsule gabapentin 800 mg tablet 1,600 mg PO BEDTIME PRN 05/13/21 05/13/21 meloxicam 15 mg tablet 15 mg PO DAILY 05/13/21 05/13/21 ondansetron HCl 8 mg tablet 1 tab PO BID PRN 05/13/21 05/13/21 semaglutide (weight loss) 1.7 1.7 mg SUBCUT WE@1000 05/13/21 05/13/21 mg/0.75 mL subcutaneous pen injector (Wegovy) Previous Rx's Medication Instructions Recorded doxycycline hyclate 100 mg capsule 100 mg PO BID #16 cap 05/15/21 Allergies Allergy/AdvReac Type Severity Reaction Status Date / Time No Known Allergies Allergy Verified 05/13/21 00:32 Review of Systems Review of Systems: Yes all other systems are reviewed and are negative [facility] Past Medical History Medical History Lymphedema Morbid obesity Social History Social History Household Members: Family Housing: Condominium Do you presently have visiting nurse or other home services: No Patient Tobacco Use Status: Never used Tobacco Advance Directives: Yes Advance Directives on File: Yes Advance Directives Date on File: 05/13/21 service: No Current occupational status: unemployed Physical Exam Vital Signs: Vital Signs: Last Vital Signs Temp 99.4 F 05/27/21 22:16 Pulse 74 05/27/21 23:40 Resp 16 05/27/21 23:40 BP 127/72 05/27/21 23:40 Pulse Ox 97 05/27/21 23:40 BMI result Body Mass Index 45.1 Appearance: Alert. Oriented X3. No acute distress. Obese ENT: Pharynx normal. Oral Mucosa moist Neck: Normal inspection. Neck supple. CVS: Normal heart rate and rhythm. Pulses normal. Respiratory: No respiratory distress. Equal air entry bilateral, no wheezing/rales/rhonchi Abdomen: Soft and nontender. Bowel sounds are present, no mass palpable, no CVA tenderness Skin: Skin warm and dry. Normal skin color. Normal skin turgor. Extremities: Bilateral lymphedema erythematous warm feeling left leg all the way to the knee no open wound Neuro: Oriented X 3. MDM - Extremity (Nontraumatic) MDM Narrative Medical decision making narrative: Patient with history of lymphedema with recurrent cellulitis with sepsis came for left leg cellulitis with nausea vomiting. Patient was just admitted 2 weeks ago for same on other leg. Labs are stable. Will start patient on vancomycin admit for observation Lab Data Attestation: I reviewed the patient's lab results. Result diagrams: 05/27/21 23:12 05/27/21 23:12 Labs: Lab Results 05/27/21 05/27/21 05/27/21 Range/Units 23:12 23:12 23:12 WBC 11.8 H (4.8-10.8) X10*3/uL RBC 4.46 L (4.60-5.80) X10*6/uL Hgb 13.0 L (14.0-18.0) g/dl Hct 39.2 L (42.0-52.0) % MCV 87.9 (80.0-98.0) fL MCH 29.1 (27.0-33.0) pg MCHC 33.2 (31.0-36.0) g/dl RDW 13.6 (11.0-16.0) % Plt Count 189 D (160-400) X10*3/uL MPV 11.2 (9.4-12.4) fL Immature Gran % (Auto) 0.3 (0.0-0.4) % Neut % (Auto) 86.5 H (45-73) % Lymph % (Auto) 7.2 L (20-40) % Garden % (Auto) 5.7 (2-11) % Eos % (Auto) 0.0 (0-4) % Baso % (Auto) 0.3 (0-2) % Lymph # (Auto) 0.9 L (1.2-4.9) X10*3/uL [place] # (Auto) 0.7 (0.1-1.2) X10*3/uL Eos # (Auto) 0.0 (0.0-0.4) X10*3/uL Baso # (Auto) 0.0 (0.0-0.2) X10*3/uL Abs Immat Gran (auto) 0.04 H (0.00-0.03) X10*3/uL Absolute Neuts (auto) 10.2 H (2.0-8.3) x10*3/uL Absolute Nucleated RBC 0.000 (0.0-0.012) X10*3/uL Nucleated RBC % (auto) 0.0 (0.0-0.2) /100WBC Sodium 138 (135-145) mmol/L Potassium 4.1 (3.3-5.1) mmol/L Chloride 105 (96-108) mmol/L Carbon Dioxide 26 (22-29) mmol/L Anion Gap 11 L (12-20) BUN 12 (9-16) mg/dL Creatinine 0.95 (0.5-1.4) mg/dL Estim Creat Clear Calc 134.2 Estimated GFR > 60 Random Glucose 107 (60-115) mg/dL Lactic Acid 1.0 (0.5-2.0) mmol/L Calcium 8.7 (8.4-10.2) mg/dL Total Bilirubin 1.9 H (0.0-1.0) mg/dL AST 17 (5-37) U/L ALT 30 (0-40) U/L Alkaline Phosphatase 49 D (39-117) U/L Total Protein 5.6 L (6.5-8.0) g/dL Albumin 3.6 (3.5-5.0) g/dL COVID-19 (DRAGAN) (Negative) COVID-19 Clin Com 05/27/21 Range/Units 23:12 WBC (4.8-10.8) X10*3/uL RBC (4.60-5.80) X10*6/uL Hgb (14.0-18.0) g/dl Hct (42.0-52.0) % MCV (80.0-98.0) fL MCH (27.0-33.0) pg MCHC (31.0-36.0) g/dl RDW (11.0-16.0) % Plt Count (160-400) X10*3/uL MPV (9.4-12.4) fL Immature Gran % (Auto) (0.0-0.4) % Neut % (Auto) (45-73) % Lymph % (Auto) (20-40) % [place] % (Auto) (2-11) % Eos % (Auto) (0-4) % Baso % (Auto) (0-2) % Lymph # (Auto) (1.2-4.9) X10*3/uL [place] # (Auto) (0.1-1.2) X10*3/uL Eos # (Auto) (0.0-0.4) X10*3/uL Baso # (Auto) (0.0-0.2) X10*3/uL Abs Immat Gran (auto) (0.00-0.03) X10*3/uL Absolute Neuts (auto) (2.0-8.3) x10*3/uL Absolute Nucleated RBC (0.0-0.012) X10*3/uL Nucleated RBC % (auto) (0.0-0.2) /100WBC Sodium (135-145) mmol/L Potassium (3.3-5.1) mmol/L Chloride (96-108) mmol/L Carbon Dioxide (22-29) mmol/L Anion Gap (12-20) BUN (9-16) mg/dL Creatinine (0.5-1.4) mg/dL Estim Creat Clear Calc Estimated GFR Random Glucose (60-115) mg/dL Lactic Acid (0.5-2.0) mmol/L Calcium (8.4-10.2) mg/dL Total Bilirubin (0.0-1.0) mg/dL AST (5-37) U/L ALT (0-40) U/L Alkaline Phosphatase (39-117) U/L Total Protein (6.5-8.0) g/dL Albumin (3.5-5.0) g/dL COVID-19 (DRAGAN) Negative (Negative) COVID-19 Clin Com See Note Discharge Plan Discharge Clinical Impression: Cellulitis Patient Disposition: Admitted As Inpatient
[2021-05-27 22:12] VITALS: BP 112/76; PULSE 102; O2SAT 95
[2021-05-27 22:16] VITALS: BP 121/67; PULSE 90; RESP 18; TEMP 37.4; O2SAT 96; BMI 45.1
[2021-05-27] MEDS: 0.9 % Sodium Chloride 1,000 ML 999 ML IV (22:23)
[2021-05-27] MEDS: Ketorolac Tromethamine 30 MG/ML VIAL IVPUSH (22:58)
[2021-05-27] MEDS: ondansetron HCL 4 MG/2 ML VIAL IVPUSH (22:58)
[2021-05-27 23:19] LABS: MANUAL DIFF FLAG NO
[2021-05-27 23:20] LABS: Basophils Percent Auto 0.3 % (0-2); Hematocrit 39.2 % (42.0-52.0); Imm Gran Abs Auto 0.04 X10*3/uL (0.00-0.03); Imm Gran Pct Auto 0.3 % (0.0-0.4); Lymphocytes Absolute Auto 0.9 X10*3/uL (1.2-4.9); Lymphocytes Percent Auto 7.2 % (20-40); Mean Corpuscular HGB Conc 33.2 g/dl (31.0-36.0); Mean Corpuscular Hemoglobin 29.1 pg (27.0-33.0); Mean Corpuscular Volume 87.9 fL (80.0-98.0); Mean Platelet Volume 11.2 fL (9.4-12.4); Monocytes Absolute Auto 0.7 X10*3/uL (0.1-1.2); Monocytes Percent Auto 5.7 % (2-11); Neutrophils Absolute Auto 10.2 x10*3/uL (2.0-8.3); Neutrophils Percent Auto 86.5 % (45-73); Platelet Count 189 X10*3/uL (160-400); Red Blood Count 4.46 X10*6/uL (4.60-5.80); Red Cell Distribution Width 13.6 % (11.0-16.0); White Blood Count 11.8 X10*3/uL (4.8-10.8)
[2021-05-27 23:33] LABS: COVID-19 Test Negative (Negative)
[2021-05-27 23:38] LABS: Alanine Aminotransferase 30 U/L (0-40); Albumin Level 3.6 g/dL (3.5-5.0); Alkaline Phosphatase 49 U/L (39-117); Anion Gap 11 (12-20); Aspartate Amino Transferase 17 U/L (5-37); Bilirubin Total 1.9 mg/dL (0.0-1.0); Blood Urea Nitrogen 12 mg/dL (9-16); Calcium 8.7 mg/dL (8.4-10.2); Carbon Dioxide 26 mmol/L (22-29); Chloride 105 mmol/L (96-108); Creatinine Clr Calc Pharmacy 134.2; Estimated Glomerular Filt Rate > 60; Glucose Random 107 mg/dL (60-115); Potassium 4.1 mmol/L (3.3-5.1); Sodium 138 mmol/L (135-145); Total Protein 5.6 g/dL (6.5-8.0)
[2021-05-27 23:40] VITALS: BP 127/72; PULSE 74; RESP 16; O2SAT 97
[2021-05-27] MEDS: vancomycin HCL 1,000 MG in 0.9 % Sodium Chloride 250 ML 270 MG IV (23:56)
--- NOTE | 2021-05-28 00:36 | P.HPHOSP_ITS ---
History of Present Illness Date of Service: 05/28/21 Chief Complaint: left leg pain redness and swelling 50-year-old male with a past medical history of lymphedema, obesity, recent admission to the hospital for right leg cellulitis presented to the hospital today with a chief complaint of left leg pain redness and swelling going on for few hours before he came to the hospital. Denies any chest pain or palpitations. Reports subjective fevers. Denies any open wounds or discharge. Denies any trauma or injury Denies any GI symptoms. Review of all other systems is negative except mentioned above ER course: per ER team patient noted to have left leg tenderness, erythema and swelling consistent with cellulitis. Given IV vancomycin and ceftriaxone. Admitted for further management. [facility] Medical History Lymphedema Morbid obesity Social History Household Members: [facility] Do you presently have visiting nurse or other home services: No Patient Tobacco Use Status: Never used Tobacco Advance Directives: Yes Advance Directives on File: Yes Advance Directives Date on File: 05/13/21 service: No Current occupational status: unemployed Meds Allergies Allergy/AdvReac Type Severity Reaction Status Date / Time No Known Allergies Allergy Verified 05/13/21 00:32 Active Medications: Current Medications Acetaminophen (Acetaminophen 325 Mg Tablet) 650 mg PO Q6H PRN PRN Reason: Pain, Mild (Pain Scale 1-3) Enoxaparin Sodium (Enoxaparin Sodium 40 Mg/0.4 Ml Syringe) 40 mg SUBCUT Q24H MIGDALIA Hydromorphone HCl (Hydromorphone Hcl 1 Mg/Ml Syringe) 0.5 mg IVPUSH Q4H PRN; Protocol PRN Reason: Pain, Severe (Pain Scale 7-10) Sodium Chloride (Ns) 1,000 mls @ 100 mls/hr IVCONT .Q10H MIGDALIA Vancomycin HCl 1,000 mg/ (Sodium Chloride) 270 mls @ 270 mls/hr IV Q12H MIGDALIA Melatonin (Melatonin 3 Mg Tablet) 6 mg PO BEDTIME PRN PRN Reason: Insomnia Pharmacy Consult (Consult Rx Vancomycin Dosing) 1 each MISCELLANE DAILY PRN PRN Reason: Consult order Senna (Sennosides 8.6 Mg Tablet) 17.2 mg PO BEDTIME PRN PRN Reason: Constipation Home Medications Medication Instructions Recorded Confirmed Last Taken Type allopurinol 300 mg tablet 300 mg PO Q2D@2100 05/13/21 05/13/21 Unknown History allopurinol 300 mg tablet 450 mg PO Q2D@2100 05/13/21 05/13/21 Unknown History ergocalciferol (vitamin D2) 1,250 1 cap PO QUINTANILLA@1000 05/13/21 05/13/21 Unknown History mcg (50,000 unit) capsule gabapentin 800 mg tablet 1,600 mg PO BEDTIME PRN 05/13/21 05/13/21 Unknown History meloxicam 15 mg tablet 15 mg PO DAILY 05/13/21 05/13/21 Unknown History ondansetron HCl 8 mg tablet 1 tab PO BID PRN 05/13/21 05/13/21 Unknown History semaglutide (weight loss) 1.7 1.7 mg SUBCUT WE@1000 05/13/21 05/13/21 Unknown History mg/0.75 mL subcutaneous pen injector (Nisha) Physical Exam Vital Signs and Narrative: Vital Signs: Last Vital Signs Temp 99.4 F 05/27/21 22:16 Pulse 74 05/27/21 23:40 Resp 16 05/27/21 23:40 BP 127/72 05/27/21 23:40 Pulse Ox 97 05/27/21 23:40 BMI result Body Mass Index 45.1 Gen: Appears be in no acute distress HEENT: NCAT, Moist mucosa. Pulmonary: Vesicular breath sounds, fair air entry CVS: Normal S1-S2 Abdomen: BS+, Soft, Nontender Extremities: Warm well perfused ; left leg is warm tender and erythematous Neuro: Alert and awake. Results Labs CBC and Chem 7: 05/27/21 23:12 05/27/21 23:12 Labs: Laboratory Results - last 24 hr 05/27/21 05/27/21 05/27/21 23:12 23:12 23:12 MCV 87.9 MCH 29.1 MCHC 33.2 RDW 13.6 Plt Count 189 D MPV 11.2 Immature Gran % (Auto) 0.3 Neut % (Auto) 86.5 H Lymph % (Auto) 7.2 L [place] % (Auto) 5.7 Eos % (Auto) 0.0 Baso % (Auto) 0.3 Lymph # (Auto) 0.9 L [place] # (Auto) 0.7 Eos # (Auto) 0.0 Baso # (Auto) 0.0 Abs Immat Gran (auto) 0.04 H Absolute Neuts (auto) 10.2 H Absolute Nucleated RBC 0.000 Nucleated RBC % (auto) 0.0 Anion Gap 11 L Estim Creat Clear Calc 134.2 Estimated GFR > 60 Random Glucose 107 Lactic Acid 1.0 Calcium 8.7 Total Bilirubin 1.9 H AST 17 ALT 30 Alkaline Phosphatase 49 D Total Protein 5.6 L Albumin 3.6 COVID-19 (DRAGAN) COVID-19 Clin Com 05/27/21 23:12 MCV MCH MCHC RDW Plt Count MPV Immature Gran % (Auto) Neut % (Auto) Lymph % (Auto) [place] % (Auto) Eos % (Auto) Baso % (Auto) Lymph # (Auto) [place] # (Auto) Eos # (Auto) Baso # (Auto) Abs Immat Gran (auto) Absolute Neuts (auto) Absolute Nucleated RBC Nucleated RBC % (auto) Anion Gap Estim Creat Clear Calc Estimated GFR Random Glucose Lactic Acid Calcium Total Bilirubin AST ALT Alkaline Phosphatase Total Protein Albumin COVID-19 (DRAGAN) Negative COVID-19 Clin Com See Note Assessment and Plan Plan 50-year-old male with a past medical history of lymphedema, obesity, recent admission to the hospital for right leg cellulitis presented to the hospital today with a chief complaint of left leg pain redness and swelling - noted to have left leg cellulitis. Admitted for further management. Left leg cellulitis: Continue IV vancomycin Will consult ID given recurrent episodes of cellulitis. Pain control Follow-up cultures will obtain venous duplex DVT prophylaxis: Lovenox Code status: Full code Quality Stroke Does the patient have a stroke diagnosis?: No VTE Prior VTE?: No VTE Risk Level:: Medical - moderate - high VTE Device Contraindication: Treatment Not Indicated VTE Drug Contraindication: N/A - Med Ordered
[2021-05-28] MEDS: cefTRIAXone sodium 1 GM in 0.9 % Sodium Chloride 50 ML IV (01:21)
[2021-05-28] MEDS: 0.9 % Sodium Chloride 1,000 ML 100 ML IVCONT ×3 (01:28→22:03)
[2021-05-28] MEDS: Enoxaparin Sodium 40 MG/0.4 ML SYRINGE SUBCUT (01:31)
[2021-05-28 01:34] VITALS: BP 119/71; PULSE 88; RESP 18; O2SAT 98
--- NOTE | 2021-05-28 03:30 | PC.NURSE ---
Assumed care of pt Pt resting on stretcher with eyes closed Breathing even and unlabored NAD Will continue to monitor
[2021-05-28 03:52] VITALS: BP 114/72; PULSE 78; RESP 18; TEMP 37.1; O2SAT 96
--- NOTE | 2021-05-28 04:45 | PC.NURSE ---
Pt given sandwiches and saltines and warm blankets per request Will continue to monitor
[2021-05-28 07:11] LABS: MANUAL DIFF FLAG NO
[2021-05-28 07:14] VITALS: BP 106/55; PULSE 71; RESP 14; TEMP 37.1; O2SAT 97
[2021-05-28] MEDS: HYDROmorphone HCl 1 MG/ML SYRINGE 0.5 MG IVPUSH ×4 (07:16→22:19)
[2021-05-28 07:19] LABS: Basophils Absolute Auto 0.1 X10*3/uL (0.0-0.2); Basophils Percent Auto 0.7 % (0-2); Eosinophils Absolute Auto 0.1 X10*3/uL (0.0-0.4); Eosinophils Percent Auto 1.2 % (0-4); Hematocrit 37.2 % (42.0-52.0); Imm Gran Abs Auto 0.03 X10*3/uL (0.00-0.03); Imm Gran Pct Auto 0.4 % (0.0-0.4); Lymphocytes Absolute Auto 0.8 X10*3/uL (1.2-4.9); Lymphocytes Percent Auto 11.5 % (20-40); Mean Corpuscular HGB Conc 32.3 g/dl (31.0-36.0); Mean Corpuscular Hemoglobin 29.1 pg (27.0-33.0); Mean Corpuscular Volume 90.3 fL (80.0-98.0); Mean Platelet Volume 11.3 fL (9.4-12.4); Monocytes Absolute Auto 0.8 X10*3/uL (0.1-1.2); Monocytes Percent Auto 10.3 % (2-11); Neutrophils Absolute Auto 5.6 x10*3/uL (2.0-8.3); Neutrophils Percent Auto 75.9 % (45-73); Platelet Count 172 X10*3/uL (160-400); Red Blood Count 4.12 X10*6/uL (4.60-5.80); Red Cell Distribution Width 13.7 % (11.0-16.0); White Blood Count 7.3 X10*3/uL (4.8-10.8)
[2021-05-28 07:34] LABS: Anion Gap 11 (12-20); Blood Urea Nitrogen 14 mg/dL (9-16); Calcium 8.2 mg/dL (8.4-10.2); Carbon Dioxide 24 mmol/L (22-29); Chloride 107 mmol/L (96-108); Estimated Glomerular Filt Rate > 60; Glucose Random 99 mg/dL (60-115); Potassium 3.8 mmol/L (3.3-5.1); Sodium 138 mmol/L (135-145)
[2021-05-28] MEDS: ondansetron HCL 4 MG/2 ML VIAL IVPUSH ×2 (07:36→16:57)
--- NOTE | 2021-05-28 07:48 | PHA.PROG ---
Admission Date/Time: May 28, 2021 00:33 Indication: cellulitis Weight in k.7 kg Adjusted body weight in K.9 kg [place] body weight in K kg Obesity Dosing Indication % IBW: Serum Creatinine - Last 168 Hours 05/27/21 05/28/21 23:12 06:59 Creatinine 0.95 0.85 Estimated CrCl and GFR - Last 168 Hours 05/27/21 05/28/21 23:12 06:59 Estim Creat Clear Calc 134.2 150.0 Estimated GFR > 60 > 60 Vancomycin Loading Dose: 1000 mg ordered in ED Current Vancomycin Dosing Regimen: 1250 mg q12h Vancomycin Monitoring using AUC goal of 400 - 600 range with trough as surrogate marker: predicted AUC 555, trough 15.5 Date and Time for next Vancomycin Level to be drawn: 05/29/21 @0900 Pharmacist Comments on Vancomycin Plan: Pt previously admitted and on 1500 mg q12h. obese model for dosing. Vancomycin dosing will take advantage of [employer] as a clinical decision support tool that uses Bayesian modeling to calculate individual patient's pharmacokinetic parameters and forecast the patient's drug concentration time course with the target goal AUC 24 range of 400 - 600 mg/L/hr.
--- NOTE | 2021-05-28 08:25 | PHA.MEDREC ---
Pharmacy Consult ? Medication Reconciliation Pharmacy has completed the medication reconciliation. Patient reports that he does not take modafinil. Reports he takes the gabapentin 1600 mg every night. Vidya Bello, KeoD
[2021-05-28 08:41] LABS: Estimated Average Glucose 85 mg/dL; Hemoglobin A1c % 4.6 %
[2021-05-28 08:44] LABS: C Reactive Protein 9.77 mg/dL (< or = 0.50)
[2021-05-28] MEDS: vancomycin HCL 1,250 MG in 0.9 % Sodium Chloride 250 ML 166.67 MG IV (11:48)
[2021-05-28 12:08] VITALS: RESP 14
--- NOTE | 2021-05-28 12:21 | PM.EVENT ---
Event Note Date of Service: 05/28/21 Event Note: day hospitalist update S: LLE redness/swelling/pain. No drainage. NO fever O: VS- T 98.7 R 14, P 71, BP 106/51, SaO2 97 on RA gen- NAD lungs- CTAB CV- RRR no m/r/g abd- soft, obese/ NT ext- bilateral lymphedema derm- LLE with erythema + induration, no fluctuance neuro- nonfocal labs- CRP 9.77 imaging- Doppler negative for DVT A/P: hospital d#1 50yo M with moribd obesity [though has last 200 lb] and congenital lymphedema, recurrent cellulitis [recently admitted 05/13-05/15/21 for RLE cellulitis], admitted for LLE cellulitis - continue IV vancomycin - ID consultation - VTE ppx with LMWH
--- NOTE | 2021-05-28 14:52 | MHC.CM.PN ---
EMR REVIEWED, PT W/CHRONIC LYMPHADEMA AND CELLULITIS IN LLE, PT RECENT ADMISSION FOR RLE CELLULITIS REPORTS THAT LEG IMPROVED AND THEN HE STARTED AN INFECTION IN LLE, PT REPORTS HE WAS CONCERNED HE WILL BE HAVING A L KNEE TKA NEXT MONTH AND WAS WORRIED THE INFECTION WOULD GET INSIDE HIS KNEE, PER PT HE HAS ALREADY DISCUSSED W/HOSPITALIST AND THEY REASSURED PT IT IS A LOCALIZED INFECTION AND THEY DON'T EXPECT HIS BC'S TO BE POSITIVE, PT VERIFIES HIS PCP KELLI NORTON, PT FULLY VACCINATED W/PFIZER X3 AND HCP IS STACY GRADER [phone] AND ON FILE FROM PREVIOUS ADMISSION. D/C PLAN: HOME NO SERVICES W/FAMILY FOR TRANSPORT.
[2021-05-28 16:40] VITALS: BP 132/67; PULSE 76; RESP 18; TEMP 37.3; O2SAT 97
[2021-05-28 22:05] VITALS: BP 132/81; PULSE 74; RESP 18; TEMP 36.9; O2SAT 93
[2021-05-29] MEDS: vancomycin HCL 1,250 MG in 0.9 % Sodium Chloride 250 ML 166.67 MG IV ×2 (01:05→12:53)
[2021-05-29] MEDS: Enoxaparin Sodium 40 MG/0.4 ML SYRINGE SUBCUT (01:06)
[2021-05-29] MEDS: Melatonin 3 MG TABLET 6 MG PO ×2 (01:28→22:54)
[2021-05-29] MEDS: ondansetron HCL 4 MG/2 ML VIAL IVPUSH ×2 (01:28→20:11)
[2021-05-29] MEDS: HYDROmorphone HCl 1 MG/ML SYRINGE 0.5 MG IVPUSH ×5 (02:44→22:54)
[2021-05-29 04:00] VITALS: BP 102/67; PULSE 72; RESP 20; TEMP 36.6; O2SAT 97
[2021-05-29] MEDS: Acetaminophen 325 MG TABLET 650 MG PO (05:14)
[2021-05-29] MEDS: 0.9 % Sodium Chloride 1,000 ML 100 ML IVCONT ×3 (08:11→20:11)
[2021-05-29] MEDS: allopurinoL 300 MG TABLET 450 MG PO ×2 (09:02→20:07)
[2021-05-29] MEDS: Loratadine 10 MG TABLET PO (09:03)
[2021-05-29 09:07] VITALS: BP 117/77; PULSE 55; RESP 16; O2SAT 99
[2021-05-29 10:31] LABS: Vancomycin Trough 11.5 mcg/mL (10.0-20.0)
[2021-05-29 11:08] LABS: Creatinine Clr Calc Pharmacy 159.3; Estimated Glomerular Filt Rate > 60
--- NOTE | 2021-05-29 11:46 | HE.PHANOTE ---
Patients trough 11.5, cr slightly decreased, predicted AUC 410, next trough 05/30@1900
[2021-05-29 12:00] VITALS: BP 122/80; PULSE 64; RESP 18; TEMP 36.7; O2SAT 99
--- NOTE | 2021-05-29 12:39 | HO.PM.IMPN ---
Subjective Subjective Date of Service: 05/29/21 Interval History: LLE redness improving No fever Review of Systems Review of Systems: Yes all other systems are reviewed and are negative Physical Exam Vital Signs: Vital Signs: Last Vital Signs Temp 97.8 F 05/29/21 04:00 Pulse 55 05/29/21 09:07 Resp 16 05/29/21 09:07 BP 117/77 05/29/21 09:07 Pulse Ox 99 05/29/21 09:07 BMI result Body Mass Index 45.1 gen- NAD lungs- CTAB CV- RRR no m/r/g abd- soft, obese/ NT ext- bilateral lymphedema derm- LLE with erythema + induration improved from my exam yesterday, no fluctuance neuro- nonfocal Objective Data Active Medications Acetaminophen (Acetaminophen 325 Mg Tablet) 650 mg PO Q6H PRN PRN Reason: Pain, Mild (Pain Scale 1-3) Last Admin: 05/29/21 05:14 Dose: 650 mg Documented by: SAYRA Allopurinol (Allopurinol 300 Mg Tablet) 450 mg PO Q2D@2100 [facility] Last Admin: 05/29/21 09:02 Dose: 450 mg Documented by: SAYRA Allopurinol (Allopurinol 300 Mg Tablet) 300 mg PO Q2D@2100 [facility] Enoxaparin Sodium (Enoxaparin Sodium 40 Mg/0.4 Ml Syringe) 40 mg SUBCUT Q24H [facility] Last Admin: 05/29/21 01:06 Dose: 40 mg Documented by: SAYRA Ergocalciferol (Ergocalciferol (Vitamin D2) 1,250 Mcg Capsule) 1,250 mcg PO QUINTANILLA@1000 [facility] Gabapentin (Gabapentin 400 Mg Capsule) 1,600 mg PO BEDTIME [facility] Hydromorphone HCl (Hydromorphone Hcl 1 Mg/Ml Syringe) 0.5 mg IVPUSH Q4H PRN; Protocol PRN Reason: Pain, Severe (Pain Scale 7-10) Last Admin: 05/29/21 08:12 Dose: 0.5 mg Documented by: SAYRA Sodium Chloride (Ns) 1,000 mls @ 100 mls/hr IVCONT .Q10H [facility] Last Admin: 05/29/21 08:11 Dose: 100 mls/hr Documented by: SAYRA Vancomycin HCl 1,250 mg/ (Sodium Chloride) 250 mls @ 166.667 mls/hr IV Q12H [facility] Last Infusion: 05/29/21 03:18 Dose: 166.67 mls/hr Documented by: SAYRA Loratadine (Loratadine 10 Mg Tablet) 10 mg PO DAILY [facility] Last Admin: 05/29/21 09:03 Dose: 10 mg Documented by: SAYRA Melatonin (Melatonin 3 Mg Tablet) 6 mg PO BEDTIME PRN PRN Reason: Insomnia Last Admin: 05/29/21 01:28 Dose: 6 mg Documented by: SAYRA Ondansetron HCl (Ondansetron Hcl 4 Mg/2 Ml Vial) 4 mg IVPUSH Q4H PRN PRN Reason: nausea/vomiting Last Admin: 05/29/21 01:28 Dose: 4 mg Documented by: SAYRA Pharmacy Consult (Consult Rx Vancomycin Dosing) 1 each MISCELLANE DAILY PRN PRN Reason: Consult order Senna (Sennosides 8.6 Mg Tablet) 17.2 mg PO BEDTIME PRN PRN Reason: Constipation Labs CBC & Chem 7: 05/28/21 06:59 05/29/21 09:57 Labs: Laboratory Results - last 24 hr 05/29/21 05/29/21 09:57 09:57 Estim Creat Clear Calc 159.3 Estimated GFR > 60 Vancomycin Trough 11.5 Microbiology Microbiology Results: Microbiology 05/27/21 23:06 Blood Culture - Preliminary Blood - Venous No growth after 24 hours. 05/27/21 23:12 Blood Culture - Preliminary Blood - Venous No growth after 24 hours. Assessment and Plan (1) Cellulitis: Status: Acute (2) Lymphedema: (3) Morbid obesity: Plan hospital d#2 50yo M with morbid obesity [though has last 200 lb] and congenital lymphedema, recurrent cellulitis [recently admitted 05/13-05/15/21 for RLE cellulitis], admitted for LLE cellulitis - continue IV vancomycin d#2. BCx NGTD - ID consultation - VTE ppx with LMWH Quality Stroke Does the patient have a stroke diagnosis?: No VTE Prior VTE?: No VTE Risk Level:: Medical - moderate - high VTE Device Contraindication: Treatment Not Indicated VTE Drug Contraindication: N/A - Med Ordered
--- NOTE | 2021-05-29 16:33 | P.CNID_ITS ---
History of Present Illness Data of Consult Service Date: 05/29/21 Requesting physician: Viri Hall Primary Care Provider: Mario Kaur MD [facility] Reason for consult: recurrent cellulitis He presents to hospital with chills and feverishness as well as discomfort left leg. He had cellulitis right leg two weeks ago and received Doxycycline 100 mg bid and took for 11 days. He had finished two days ago but developed peeling on right foot and then left leg redness. He has had lymphedema since childhood and cellulitis about thirty times since age 13. He says he has had shock and last severe episode December of 2020. He saw OT and is wearing compression stockings. He denies MRSA and has not had bacteremia he says He is due to knee replacement surgery and has had left leg MCL/ACL repair after foot ball. Review of Systems Review of Systems: Yes all other systems are reviewed and are negative [facility] Past Medical History Medical History (Updated 05/29/21 @ 16:39 by Mellissa Vaca MD) Lymphedema Morbid obesity Recurrent cellulitis Family History Family history: reviewed and not pertinent Social History Social History Household Members: Family Housing: [facility] Do you presently have visiting nurse or other home services: No Patient Tobacco Use Status: Never used Tobacco Advance Directives: Yes Advance Directives on File: Yes Advance Directives Date on File: 05/13/21 service: No Current occupational status: unemployed Meds Allergies Allergy/AdvReac Type Severity Reaction Status Date / Time No Known Allergies Allergy Verified 05/13/21 00:32 Active Medications: Current Medications Acetaminophen (Acetaminophen 325 Mg Tablet) 650 mg PO Q6H PRN PRN Reason: Pain, Mild (Pain Scale 1-3) Last Admin: 05/29/21 05:14 Dose: 650 mg Documented by: Allopurinol (Allopurinol 300 Mg Tablet) 450 mg PO Q2D@2100 [facility] Last Admin: 05/29/21 09:02 Dose: 450 mg Documented by: Allopurinol (Allopurinol 300 Mg Tablet) 300 mg PO Q2D@2100 [facility] Enoxaparin Sodium (Enoxaparin Sodium 40 Mg/0.4 Ml Syringe) 40 mg SUBCUT Q24H [facility] Last Admin: 05/29/21 01:06 Dose: 40 mg Documented by: Ergocalciferol (Ergocalciferol (Vitamin D2) 1,250 Mcg Capsule) 1,250 mcg PO QUINTANILLA@1000 [facility] Gabapentin (Gabapentin 400 Mg Capsule) 1,600 mg PO BEDTIME [facility] Hydromorphone HCl (Hydromorphone Hcl 1 Mg/Ml Syringe) 0.5 mg IVPUSH Q4H PRN; Protocol PRN Reason: Pain, Severe (Pain Scale 7-10) Last Admin: 05/29/21 12:53 Dose: 0.5 mg Documented by: Sodium Chloride (Ns) 1,000 mls @ 100 mls/hr IVCONT .Q10H [facility] Last Admin: 05/29/21 08:11 Dose: 100 mls/hr Documented by: Vancomycin HCl 1,250 mg/ (Sodium Chloride) 250 mls @ 166.667 mls/hr IV Q12H [facility] Last Admin: 05/29/21 12:53 Dose: 166.67 mls/hr Documented by: Loratadine (Loratadine 10 Mg Tablet) 10 mg PO DAILY [facility] Last Admin: 05/29/21 09:03 Dose: 10 mg Documented by: Melatonin (Melatonin 3 Mg Tablet) 6 mg PO BEDTIME PRN PRN Reason: Insomnia Last Admin: 05/29/21 01:28 Dose: 6 mg Documented by: Ondansetron HCl (Ondansetron Hcl 4 Mg/2 Ml Vial) 4 mg IVPUSH Q4H PRN PRN Reason: nausea/vomiting Last Admin: 05/29/21 01:28 Dose: 4 mg Documented by: Pharmacy Consult (Consult Rx Vancomycin Dosing) 1 each MISCELLANE DAILY PRN PRN Reason: Consult order Senna (Sennosides 8.6 Mg Tablet) 17.2 mg PO BEDTIME PRN PRN Reason: Constipation Home Medications Medication Instructions Recorded Confirmed Last Taken Type allopurinol 300 mg tablet 300 mg PO Q2D@209905/13/21 05/28/21 05/26/21 History allopurinol 300 mg tablet 450 mg PO Q2D@209905/13/21 05/28/21 05/25/21 History ergocalciferol (vitamin D2) 1,250 1 cap PO QUINTANILLA@1000 05/13/21 05/28/21 05/26/21 History mcg (50,000 unit) capsule gabapentin 800 mg tablet 1,600 mg PO BEDTIME 05/13/21 05/28/21 05/26/21 History meloxicam 15 mg tablet 15 mg PO DAILY 05/13/21 05/28/21 05/26/21 History ondansetron HCl 8 mg tablet 1 tab PO BID PRN 05/13/21 05/28/21 05/26/21 History semaglutide (weight loss) 1.7 1.7 mg SUBCUT WE@1000 05/13/21 05/28/21 05/26/21 History mg/0.75 mL subcutaneous pen injector (Wegovy) loratadine 10 mg tablet 10 mg PO DAILY 05/28/21 05/28/21 05/26/21 History Physical Exam Vital Signs: Vital Signs: Last Vital Signs Temp 97.8 F 05/29/21 04:00 Pulse 55 05/29/21 09:07 Resp 16 05/29/21 09:07 BP 117/77 05/29/21 09:07 Pulse Ox 99 05/29/21 09:07 BMI result Body Mass Index 45.1 Const: General: cooperative Eyes: General: appearance normal, both eyes and all related structures Pupils: Equal, round and reactive pupils present Resp: Effort & Inspection: normal respiratory effort Cardio: Rate: regular rate Rhythm: regular rhythm GI: Palpation (GI): Soft to palpation and nontender Skin: General skin exam: no rashes or lesions noted Neuro: Cranial nerves: Yes Equal, round and reactive pupils present Extrem: Other: left lower leg warm,no tinea pedis,chronic swelling bilateral legs no tinea pedis left surgical knee scar right peeling skin great toe Results Labs CBC & Chem 7: 05/28/21 06:59 05/29/21 09:57 Labs: BMP 05/29/21 09:57 Creatinine 0.80 Microbiology Microbiology Results: Microbiology 05/27/21 23:06 Blood - Venous Blood Culture - Preliminary No growth after 24 hours. 05/27/21 23:12 Blood - Venous Blood Culture - Preliminary No growth after 24 hours. Assessment and Plan (1) Cellulitis: Status: Acute (2) Recurrent cellulitis: Status: Acute He has probable recurrent strep but this hasnt been proven He has had no MRSA he says Lymphedema and post infection foot scabs likely source Plan would give IV Vancomycin day or two and then po Keflex 500 mg qid for 14 days and then po Penicillin V 250 mg bid indefinitely for prophylaxis. Would also continue compression ?Deidre He has appt [facility] Infectious Disease outpatient on June 09.
--- NOTE | 2021-05-29 18:07 | PC.NURSE ---
Pt is A&Ox4, pain 7/10 to LLE, mild redness and swelling, non pitting to BLE, redness only noted to LLE at this time, +pulses. IV running as per MAR orders, pt uses urinal at bedside. Call ken within reach. Will continue to monitor.
[2021-05-29] MEDS: Gabapentin 400 MG CAPSULE 1600 MG PO (22:54)
[2021-05-29] MEDS: vancomycin HCL 1,250 MG in 0.9 % Sodium Chloride 250 ML 166.66 MG IV (22:55)
[2021-05-29 23:21] VITALS: BP 111/71; PULSE 61; RESP 14; O2SAT 94
--- NOTE | 2021-05-30 00:06 | PC.NURSE ---
Pt a&OX4, pleasant and cooperative. Speech is clear and appropriate. LS-CTA. Pt denies cough/sob. BS+. Pt tolerating diet well. No N/V/D. LLE very slightly pink/warm. Painful-see MAR. Pt ambulated to bathroom with a steady gait IV fluids infusing as ordered. IV antibiotics as ordered. Will continue to monitor.
[2021-05-30] MEDS: Enoxaparin Sodium 40 MG/0.4 ML SYRINGE SUBCUT (01:01)
[2021-05-30 04:14] VITALS: BP 111/71; PULSE 83; RESP 14; TEMP 36.8; O2SAT 95
--- NOTE | 2021-05-30 05:55 | PC.NURSE ---
Patient slept comfortably throughout the night with no c/o pain/discomfort. IV fluids infusing as ordered. Will continue to monitor.
[2021-05-30 07:13] LABS: Hematocrit 39.2 % (42.0-52.0); Hemoglobin 12.7 g/dl (14.0-18.0); Mean Corpuscular HGB Conc 32.4 g/dl (31.0-36.0); Mean Corpuscular Hemoglobin 29.3 pg (27.0-33.0); Mean Corpuscular Volume 90.3 fL (80.0-98.0); Mean Platelet Volume 11.4 fL (9.4-12.4); Platelet Count 176 X10*3/uL (160-400); Red Blood Count 4.34 X10*6/uL (4.60-5.80); Red Cell Distribution Width 13.6 % (11.0-16.0); White Blood Count 4.5 X10*3/uL (4.8-10.8)
[2021-05-30 07:39] LABS: Anion Gap 12 (12-20); Blood Urea Nitrogen 8 mg/dL (9-16); Calcium 8.5 mg/dL (8.4-10.2); Carbon Dioxide 26 mmol/L (22-29); Chloride 108 mmol/L (96-108); Creatinine Clr Calc Pharmacy 155.4; Estimated Glomerular Filt Rate > 60; Glucose Random 91 mg/dL (60-115); Potassium 4.1 mmol/L (3.3-5.1); Sodium 142 mmol/L (135-145)
[2021-05-30] MEDS: 0.9 % Sodium Chloride 1,000 ML 100 ML IVCONT (08:31)
[2021-05-30 08:46] VITALS: BP 113/80; PULSE 72; RESP 13; TEMP 36.9; O2SAT 96
[2021-05-30] MEDS: Loratadine 10 MG TABLET PO (09:12)
[2021-05-30] MEDS: HYDROmorphone HCl 1 MG/ML SYRINGE 0.5 MG IVPUSH (09:12)
--- NOTE | 2021-05-30 10:38 | PC.NURSE ---
Pt A&Ox4, LCA, LLE slightly pink at this time, pain 5/10 to LLE at this time, medicated as per MAR orders. Antibiotic due at 1100, pt is aware he should be DC'd soon after next IV antibiotic, POC including medications at discharge discussed with pt. Pt uses urinal at this time, clear yellow urine. Call ken within reach, will continue to monitor.
[2021-05-30] MEDS: vancomycin HCL 1,250 MG in 0.9 % Sodium Chloride 250 ML 166.66 MG IV (11:18)
--- NOTE | 2021-05-30 12:26 | PM.DS ---
DS: Providers Provider Date of Service: 05/30/21 Date of admission: 05/28/21 00:33 Date of discharge: 05/30/21 Primary care physician: Mario Kaur MD Consults: 05/28/21 00:32 Consult to Infectious Diseases Routine Consulting Provider: Mellissa Vaca Reason for consultation: Rec cellulitis DS: Diagnosis Discharge Diagnosis (1) Cellulitis: Status: Acute (2) Recurrent cellulitis: Status: Acute DS: Summary Hospital Course Hospital Course: 50-year-old male with a past medical history of lymphedema, obesity, recent admission to the hospital for right leg cellulitis presented to the hospital today with a chief complaint of left leg pain redness and swelling - noted to have left leg cellulitis Hospital course Admitted maintain on vancomycin. Seen by ID who recommended that mycin until leg improved and then follow with 14 days of Keflex q.i.d. then prophylaxis Pen-VK 250 b.i.d.. Patient has follow-up with [facility] ID early June. As of this a.m., patient states his legs are back to baseline and they feel great. Given such he will be discharged on the above regimen to follow-up with [facility] ID Time Spent with Patient Time attestation: Total time spent providing and/or coordinating discharge services: Discharge coordination time: Greater than 30 minutes Quality: Stroke Does the patient have a stroke diagnosis?: No Physical Exam Vital Signs: Vital Signs: Last Vital Signs Temp 98.5 F 05/30/21 08:46 Pulse 72 05/30/21 08:46 Resp 13 05/30/21 08:46 BP 113/80 05/30/21 08:46 Pulse Ox 96 05/30/21 08:46 BMI result Body Mass Index 45.1 Const: Other: awake alert no acute dis Resp: Other: clear to auscultation bilaterally no rales rhonchi or wheezes Cardio: Other: no S4; positive S1-S2; no S3 murmurs or gallops GI: Other: soft nontender nondistended normo Extrem: Other: no edema or erythema bilaterally DS: Data Data Completed and Pending Labs on day of discharge: Laboratory Results - last 24 hr 05/30/21 05/30/21 07:03 07:03 WBC 4.5 L RBC 4.34 L Hgb 12.7 L Hct 39.2 L MCV 90.3 MCH 29.3 MCHC 32.4 RDW 13.6 Plt Count 176 MPV 11.4 Absolute Nucleated RBC 0.000 Nucleated RBC % (auto) 0.0 Sodium 142 Potassium 4.1 Chloride 108 Carbon Dioxide 26 Anion Gap 12 BUN 8 L Creatinine 0.82 Estim Creat Clear Calc 155.4 Estimated GFR > 60 Random Glucose 91 Calcium 8.5 C-Reactive Protein 2.60 H Preliminary micro results at discharge 05/27/21 23:06 Blood Culture - Preliminary Blood - Venous No growth after 48 hours. 05/27/21 23:12 Blood Culture - Preliminary Blood - Venous No growth after 48 hours. Discharge Plan Discharge Patient Disposition: Home, Self-Care Discharge Diagnosis: Lower extremity cellulitis Referrals: Mario Kaur MD [Primary Care Provider] - 1 Week Discharge Medications: New cephalexin 500 mg capsule 500 mg PO QID 14 Days Qty: 56 0RF penicillin V potassium 250 mg tablet 250 mg PO BID Qty: 60 3RF Continued ondansetron HCl 8 mg tablet 1 tab PO BID PRN (Reason: nausea) 0RF meloxicam 15 mg tablet 15 mg PO DAILY 0RF gabapentin 800 mg tablet 1,600 mg PO BEDTIME 0RF allopurinol 300 mg tablet 300 mg PO Q2D@2100 0RF ergocalciferol (vitamin D2) 1,250 mcg (50,000 unit) capsule 1 cap PO QUINTANILLA@1000 0RF Wegovy 1.7 mg/0.75 mL pen injector 1.7 mg subcut WE@1000 0RF allopurinol 300 mg tablet 450 mg PO Q2D@2100 0RF loratadine 10 mg Tablet 10 mg PO DAILY 0RF Discharge Orders: Discharge Order (Routine); Ordered 05/30/21 Ordered By: Nazario Romeo Diet: advance to usual diet Activity on Discharge: As tolerated Stand Alone Forms: Patient Portal Discharge page Care Plan Goals: complete Keflex 4 times a day for 14 days; then start Pen-VK 250 mg twice a day until seen by infectious disease at [facility] Concerns: follow-up with [facility] infectious Disease; they can adjust prophylaxis Plan of Treatment: as outlined Assessment: see discharge summary
--- NOTE | 2021-05-30 12:47 | MHC.CM.PN ---
Received notification that patient will be discharge home without services. Patient will arrange his own transportation. Continue to monitor for d/c needs.
== END 2021-05-30 14:00 | disposition home or self-care (01) | DRG 383 ==
LOC: HO.ED 05-28 00:36 → HO.EDOVER 05-28 00:38
PROVIDERS: Family Medicine; Admitting Provider Hospitalist; Emergency Provider Internal Medicine; PCP Family Medicine; Visit Provider Hospitalist
DX: L03.116 Cellulitis of left lower limb (principal); Z68.42 Body mass index [BMI] 45.0-49.9, adult; I89.0 Lymphedema, not elsewhere classified; E66.01 Morbid (severe) obesity due to excess calories; Z20.822 Contact with and (suspected) exposure to COVID-19; Z79.1 Long term (current) use of non-steroidal anti-inflammatories (NSAID); Z79.899 Other long term (current) drug therapy
CPT/HCPCS: 36415; 80048; 80053; 80202; 82565; 83036; 83605; 85025; 85027; 86140; 87040; 87635; 93971; 99285; J0696; J1170; J1650; J1885; J2405; J3370

== ENCOUNTER 2022-08-03 15:42 | Emergency (ER) | payer BC, SELFPAY ==
[2022-08-03 16:13] VITALS: BP 138/79; PULSE 80; RESP 20; TEMP 35.9; O2SAT 95; BMI 47.3
--- NOTE | 2022-08-03 16:13 | ED.GENADULT ---
HPI - General Adult General Chief complaint: Wound/Laceration Stated complaint: left hand injury Time Seen by Provider: 08/03/22 16:28 Source: patient Mode of arrival: ambulatory Limitations: no limitations History of Present Illness HPI narrative: Patient is a 51 year old assigned male at with a history of recurrent lower leg infections presenting to the emergency department today with a cut to his left thumb. Patient states that 24 hours ago, he cut his left thumb while slicing onions. Patient states that he did not think it was stitchable so he wrapped it up. Patient states that he has a history of chronic lower leg swelling with recurrent skin infections so his PCP has him on 250mg of Keflex BID chronically. Patient denies any dizziness, lightheadedness, abdominal pain, nausea, vomiting, fever, chills, blurry vision, double vision, loss of vision, chest pain, difficulty breathing, shortness of breath, back pain, night sweats, pain with urination, increased urinary frequency, increased urinary urgency, blood in his urine or stool, syncope or a near syncopal episode, bowel incontinence, bladder incontinence, bowel retention, bladder retention, or any other complaints at this time. Patient states that he is up to date on his tetanus status. Onset (ago): day(s) (1) Location: left and upper extremity Severity: mild Severity scale (1-10): 2 Relieving factors: none Exacerbating factors: none Associated symptoms: denies other symptoms Treatments prior to arrival: none Related Data Home Medications Medication Instructions Recorded Confirmed allopurinol 300 mg tablet 300 mg PO Q2D@2100 05/13/21 05/28/21 allopurinol 300 mg tablet 450 mg PO Q2D@2100 05/13/21 05/28/21 ergocalciferol (vitamin D2) 1,250 1 cap PO QUINTANILLA@1000 05/13/21 05/28/21 mcg (50,000 unit) capsule gabapentin 800 mg tablet 1,600 mg PO BEDTIME 05/13/21 05/28/21 meloxicam 15 mg tablet 15 mg PO DAILY 05/13/21 05/28/21 ondansetron HCl 8 mg tablet 1 tab PO BID PRN nausea 05/13/21 05/28/21 semaglutide (weight loss) 1.7 1.7 mg subcut WE@1000 03/05/22 03/20/22 mg/0.75 mL subcutaneous pen injector (Nisha) loratadine 10 mg tablet 10 mg PO DAILY 05/28/21 05/28/21 Previous Rx's Medication Instructions Recorded cephalexin 500 mg capsule 500 mg PO QID 14 days #56 caps 05/30/21 penicillin V potassium 250 mg 250 mg PO BID #60 tabs 05/30/21 tablet Allergies Allergy/AdvReac Type Severity Reaction Status Date / Time No Known Allergies Allergy Verified 05/13/21 00:32 Review of Systems Constitutional: Constitutional: Reports no additional constitutional complaints, Denies chills, Denies fever(s) and Denies night sweats Eyes: Eyes: Reports no additional eye complaints, Denies blurry vision, Denies change in vision, Denies diplopia, Denies eye discharge, Denies loss of vision and Denies eye pain ENT: Denies dizziness Cardiovascular: Cardiovascular: Reports no additional cardiovascular complaints, Denies chest pain, Denies lightheadedness, Denies Loss of Consciousness and Denies dyspnea Respiratory: Respiratory: Reports no additional respiratory complaints and Denies dyspnea Gastrointestinal: Gastrointestinal: Reports no additional gastrointestinal complaints, Denies abdominal pain, Denies melena, Denies hematochezia, Denies change in bowel habits and Denies change in stool character Genitourinary: Genitourinary: Reports no additional male genitourinary complaints, Denies hematuria, Denies oliguria, Denies difficulty urinating, Denies dysuria, Denies urinary frequency, Denies urinary hesitancy, Denies urinary incontinence and Denies urinary urgency Musculoskeletal: Musculoskeletal: Reports no additional musculoskeletal complaints, Denies numbness and Denies tingling Integumentary/Breasts: Comments: left thumb laceration Neurologic: Denies dizziness, Denies loss of vision, Denies numbness and Denies tingling Psychiatric: Psychiatric: Reports no additional psychiatric complaints Endocrine: Endocrine: Reports no additional endocrine complaints Hematologic/Lymphatic: Hematologic/Lymphatic: Reports no additional hematologic/lymphatic complaints Allergic/Immunologic: Allergic/Immunologic: Reports no additional allergic/immunologic complaints PMFSH Past Medical History Attestation statement: The following information was validated with the patient. Source: old records reviewed and nursing notes reviewed Medical History Lymphedema Morbid obesity Recurrent cellulitis Social History Social History Household Members: Family Housing: Condominium Do you presently have visiting nurse or other home services: No Patient Tobacco Use Status: Never used Tobacco Advance Directives: Yes Advance Directives on File: Yes Advance Directives Date on File: 05/13/21 service: No Current occupational status: unemployed Physical Exam ED Vital Signs: Vital Signs - 24 hr 08/03/22 16:13 Temperature 96.7 F L Pulse Rate 80 Respiratory Rate 20 Blood Pressure 138/79 Pulse Oximetry 95 Oxygen Delivery Method Room Air BMI result Body Mass Index 47.3 Const General: cooperative, no acute distress, alert and awake Nutritional Appearance: well nourished Orientation/consciousness: patient oriented x3 Limitations: no limitations HENMT Head: Yes normal to inspection and Yes atraumatic Ears: hearing grossly normal bilaterally and external ears normal General nose exam: Normal external nose present, no nasal discharge noted and no epistaxis Face and sinus: Yes normal facial exam, No abrasion and No laceration Mouth: Normal oral and palatal mucosa present, no drooling and no muffled voice Eyes General: appearance normal, both eyes and all related structures Periorbital: periorbital findings normal Eyelids: Yes eyelids normal Conjunctivae: conjunctivae normal Pupils: Equal, round and reactive pupils present EOM: EOMs intact bilaterally Neck Neck: Yes normal visual inspection, Yes full ROM and Yes no lymphadenopathy Chest Chest palpation & inspection: normal inspection of the chest Resp Effort & Inspection: normal respiratory effort and able to speak in complete sentences GI Inspection: Yes normal to inspection Neuro General: patient oriented x3 and moves all extremities Cranial nerves: Yes Equal, round and reactive pupils present Cognition (Neuro): normal cognition Motor exam (neuro): 5/5 motor strength present throughout Sensory Exam: Normal double simultaneous stimulation for sensation Coordination: [id number] test normal Extrem Other: 2cm laceration to the ulnar aspect of the left thumb, no active bleeding General: Yes full ROM and Yes capillary refill normal Psych Appearance: grossly normal Mental Status: mental status grossly normal Affect: normal affect Attitude: cooperative Thought process: Normal thought process present Thought content: Normal thought content present Insight: Good insight present (Psych) Medical Decision Making Medical Decision Making MDM Narrative: Patient is a 51 year old assigned male at with a history of recurrent lower leg infections presenting to the emergency department today with a left thumb laceration. Patient's physical exam showed a 2cm laceration to the ulnar aspect of the left thumb with no active bleeding. Patient's laceration could have been sutured however, given how long the patient waited, it would not be appropriate to close the wound. Patient's wound was somewhat moist with macerated edges. I applied surgicell and a non-adherent dressing to the wound, without incident. Patient's PMS was in tact prior to and after dressing. I explained my physical exam findings as well to the patient. I answered all questions asked by the patient. I stressed the importance of the patient upping his antibiotic use to 500mg Q6H for 7 days, performing daily wound checks / dressing changes, and NOT geting the affected area wet for at least 7 days. I stressed the importance of the patient taking the rest of his medication as prescribed. I stressed the importance of the patient following up with his primary care provider. I stressed the importance of the patient returning to the emergency department immediately if his symptoms were to worsen or if he were to develop any dizziness, shortness of breath, difficulty breathing, chest pain, blurry vision, loss of vision, nausea, vomiting, abdominal pain, fever, chills, back pain, or any other complaints. Patient verbalized agreement and understanding with this treatment plan and discharge. Differential Diagnosis Differential Diagnoses: The differential diagnosis associated with the presentation includes left thumb laceration Discharge Plan Discharge Clinical Impression: Laceration Patient Disposition: Home, Self-Care Instructions: Finger Laceration (ED) Additional Instructions: Do NOT get the area wet for at LEAST 7 days. Remove your bandage in 72 hours. Increase your daily keflex dose to 500mg Q6 hours for 7 days. Follow up with your primary care provider. Return to the emergency department immediately if your symptoms worsen or if you develop any dizziness, shortness of breath, difficulty breathing, chest pain, blurry vision, loss of vision, nausea, vomiting, abdominal pain, fever, chills, back pain, or any other complaints. Prescriptions: No Action ondansetron HCl 8 mg tablet 1 tab PO BID PRN (Reason: nausea) meloxicam 15 mg tablet 15 mg PO DAILY gabapentin 800 mg tablet 1,600 mg PO BEDTIME allopurinol 300 mg tablet 300 mg PO Q2D@2100 ergocalciferol (vitamin D2) 1,250 mcg (50,000 unit) capsule 1 cap PO QUINTANILLA@1000 Wegovy 1.7 mg/0.75 mL pen injector 1.7 mg subcut WE@1000 allopurinol 300 mg tablet 450 mg PO Q2D@2100 loratadine 10 mg Tablet 10 mg PO DAILY cephalexin 500 mg capsule 500 mg PO QID 14 Days Qty: 56 0RF penicillin V potassium 250 mg tablet 250 mg PO BID Qty: 60 3RF Referrals: Mario Kaur MD [Primary Care Provider] - Print Language: Kiswahili
== END 2022-08-03 16:49 | disposition home or self-care (01) ==
LOC: HO.ED 16:32
PROVIDERS: Emergency Provider Internal Medicine; PCP Family Medicine
DX: S61.012A Laceration without foreign body of left thumb without damage to nail, initial encounter (principal); W26.0XXA Contact with knife, initial encounter; Y93.G1 Activity, food preparation and clean up; Y92.030 Kitchen in apartment as the place of occurrence of the external cause; Y99.9 Unspecified external cause status
CPT/HCPCS: 99282; 99283